=== PATIENT | female | born 1945 | race Caucasian/White ===

== ENCOUNTER → 2016-10-20 | Outpatient (CLI) | payer BC ==
[~2016-10-20] MED LIST: ATOR-22 PO; BUTA1CAP; CALC1TAB9; CLB/200 PO; DICL1GEL28; FLUO0.01; INDA1TAB3 PO; MIRA1TAB3; NITR1CAP33 PO; POTA1TAB; PRLSR20 PO; RAMI10CA PO; [UNRECOGNIZED DRUG - CODE]
[2016-10-20 12:24] LABS: BASO % 0.2 %; BASO ABS # 0.01 K/uL (0-0.2); COMPLETE YES; EOS % 1.2 %; HEMATOCRIT 38.1 % (37-47); IG% 0.2 %; MEAN CELL VOLUME 83.2 fL (80-100); MEAN CORPUSCULAR HEMOGLOBIN 27.7 pg (25-34); MEAN CORPUSCULAR HGB CONC 33.3 g/dl (32-36); MEAN PLATELET VOLUME 9.6 fL (7.4-10.4); MONO % 11.8 %; NEUT % 60.6 %; PLATELET COUNT 237 K/uL (130-400); RED BLOOD COUNT 4.58 M/uL (4.2-5.4); WHITE BLOOD COUNT 5.78 K/uL (4.8-10.8)
[2016-10-20 12:34] LABS: ALT/SGPT 22 U/L (12-78); AST/SGOT 14 U/L (15-37); BLOOD UREA NITROGEN 14 mg/dl (7-18); BUN/CREATININE RATIO 23.6 (10-20); CARBON DIOXIDE 30 mmol/L (21-32); CHLORIDE 102 mmol/L (98-107); CHOLESTEROL 211 mg/dl (0-200); CREATININE 0.59 mg/dl (0.60-1.20); GLUCOSE 88 mg/dl (70-99); POTASSIUM 3.2 mmol/L (3.5-5.1); SODIUM 141 mmol/L (136-145); TRIGLYCERIDES 192 mg/dl (0-150); VERY LOW DENSITY LIPOPROT CALC 38 mg/dl
[2016-10-20 12:44] LABS: HDL CHOLESTEROL 53 mg/dl; LDL CHOLESTEROL CALCULATED 120 mg/dl
[2016-10-20 12:56] LABS: ESTIMATED AVERAGE GLUCOSE 111 mg/dl; HA1C FLAG Normal (Normal)
== END | disposition home or self-care (01) ==
LOC: C.LABBFT 08:57
PROVIDERS: ATTEND Internal Medicine
DX: I10 Essential (primary) hypertension (principal); E78.00 Pure hypercholesterolemia, unspecified; R73.9 Hyperglycemia, unspecified; Z11.59 Encounter for screening for other viral diseases

== ENCOUNTER → 2017-01-09 | Outpatient (CLI) | payer BC | END | disposition home or self-care (01) | LOC: C.LAB 16:47 | PROVIDERS: ATTEND Nurse Practitioner Family | DX: N39.0 Urinary tract infection, site not specified (principal); N39.46 Mixed incontinence ==

== ENCOUNTER → 2017-01-24 | Outpatient (CLI) | payer BC | END | disposition home or self-care (01) | LOC: C.LABSPEC 17:01 | PROVIDERS: ATTEND Urology | DX: N39.46 Mixed incontinence (principal); N39.0 Urinary tract infection, site not specified ==

== ENCOUNTER → 2017-04-18 | Outpatient (CLI) | payer BC ==
[2017-04-18 12:18] LABS: BASO % 0.2 %; BASO ABS # 0.01 K/uL (0-0.2); COMPLETE YES; EOS % 0.9 %; HEMATOCRIT 38.7 % (37-47); LYMPH % 36.6 %; LYMPH ABS # 1.72 K/uL (1.2-3.4); MEAN CELL VOLUME 85.4 fL (80-100); MEAN CORPUSCULAR HEMOGLOBIN 28.3 pg (25-34); MEAN CORPUSCULAR HGB CONC 33.1 g/dl (32-36); MEAN PLATELET VOLUME 9.9 fL (7.4-10.4); MONO % 8.7 %; NEUT % 53.6 %; PLATELET COUNT 220 K/uL (130-400); RED BLOOD COUNT 4.53 M/uL (4.2-5.4)
[2017-04-18 12:35] LABS: ESTIMATED AVERAGE GLUCOSE 111 mg/dl; HA1C FLAG Normal (Normal)
[2017-04-18 12:36] LABS: ALT/SGPT 24 U/L (12-78); AST/SGOT 14 U/L (15-37); BLOOD UREA NITROGEN 18 mg/dl (7-18); BUN/CREATININE RATIO 26.5 (10-20); CALCIUM 9.2 mg/dl (8.5-10.1); CARBON DIOXIDE 32 mmol/L (21-32); CHLORIDE 103 mmol/L (98-107); CHOLESTEROL 161 mg/dl (0-200); CREATININE 0.66 mg/dl (0.60-1.20); GLUCOSE 97 mg/dl (70-99); POTASSIUM 3.3 mmol/L (3.5-5.1); SODIUM 140 mmol/L (136-145)
[2017-04-18 12:46] LABS: CHOLESTEROL/HDL RATIO 2.9; HDL CHOLESTEROL 55 mg/dl; LDL CHOLESTEROL CALCULATED 81 mg/dl; TRIGLYCERIDES 123 mg/dl (0-150); VERY LOW DENSITY LIPOPROT CALC 25 mg/dl
--- NOTE | 2017-04-24 11:38 | CODING QUERY MEDICAL NECESSITY ---
SUPPORTING DIAGNOSIS NEEDED Dr. Monet, A supporting diagnosis is required for the test/procedure performed on this patient in order for us to be reimbursed by the patient's insurance. Please provide a supporting diagnosis for the following test/procedure listed below next to the test name along with your signature. *If there is no additional diagnosis for this patient that would support the following test/procedure please document that below next to the test/procedure. Test(s)/Procedure(s) that require a supporting diagnosis: * [id number] GLYCATED HEMOGLOBIN DIAGNOSIS: DATE OF SERVICE: 04/18/17 Provider Signature: Date: Thank you Farooq Tuckre [facility] Information Management Once completed, please kindly fax back to [phone] For questions please call [phone]
== END | disposition home or self-care (01) ==
LOC: C.LABBFT 08:51
PROVIDERS: ATTEND Internal Medicine
DX: E78.00 Pure hypercholesterolemia, unspecified (principal); R73.9 Hyperglycemia, unspecified

== ENCOUNTER → 2017-06-01 | Outpatient (CLI) | payer BC | END | disposition home or self-care (01) | LOC: C.MAMM 10:34 | PROVIDERS: ATTEND Internal Medicine | DX: M81.0 Age-related osteoporosis without current pathological fracture (principal); M85.852 Other specified disorders of bone density and structure, left thigh ==

== ENCOUNTER → 2017-06-20 | Outpatient (CLI) | payer BC ==
--- NOTE | 2017-06-20 15:21 | MAMMOGRAPHY REPORT ---
BILATERAL DIGITAL SCREENING MAMMOGRAM WITH CAD: 06/20/2017 CLINICAL HISTORY: Routine screening. Patient has no complaints. TECHNIQUE: Bilateral CC and MLO views were obtained. Current study was also evaluated with a Compute r Aided Detection (CAD) system. COMPARISON: Comparison is made to exams dated: 06/16/2016 mammogram, 05/25/2015 mammogram, 05/14/2014 mammogram, 05/09/2012 mammogram, 04/19/2010 mammogram, and 04/20/2011 mammogram - [facility] enter. BREAST COMPOSITION: There are scattered areas of fibroglandular density in both breasts. FINDINGS: There is a stable intramammary lymph node in the upper outer posterior left breast. No sonido picious mass, architectural distortion or cluster of microcalcifications is seen. IMPRESSION: ACR BI-RADS CATEGORY 1: NEGATIVE There is no mammographic evidence of malignancy. A 1 year screening mammogram is recommended. The pa tient will receive written notification of the results. Approximately 10% of breast cancers are not detected with mammography. A negative mammographic report should not delay biopsy if a clinically suggestive mass is present. Keesha Avendaño M.D. ay/:06/20/2017 12:06:03 Manager Of Network: Glenna SMITH(Marquez)(Jacquie), [facility] letter sent: Normal 1/2 BI-RADS Code: ACR BI-RADS Category 1: Negative
== END | disposition home or self-care (01) ==
LOC: C.MAMM 10:27
PROVIDERS: ATTEND Obstetrics & Gynecology
DX: Z12.31 Encounter for screening mammogram for malignant neoplasm of breast (principal)

== ENCOUNTER → 2017-12-12 | Outpatient (CLI) | payer BC ==
[2017-12-12 12:34] LABS: BASO % 0.4 %; BASO ABS # 0.02 K/uL (0-0.2); EOS % 1.8 %; HEMATOCRIT 39.4 % (37-47); IG# 0.01 K/uL (0.00-0.02); LYMPH % 24.7 %; LYMPH ABS # 1.35 K/uL (1.2-3.4); MEAN CELL VOLUME 84.5 fL (80-100); MEAN CORPUSCULAR HEMOGLOBIN 27.9 pg (25-34); MEAN PLATELET VOLUME 9.7 fL (7.4-10.4); MONO % 10.1 %; MONO ABS # 0.55 K/uL (0.11-0.59); NEUT % 62.8 %; NEUT ABS # 3.43 K/uL (1.4-6.5); PLATELET COUNT 243 K/uL (130-400); RED CELL DISTRIBUTION WIDTH CV 14.2 % (11.5-14.5); WHITE BLOOD COUNT 5.46 K/uL (4.8-10.8)
[2017-12-12 12:53] LABS: HEMOGLOBIN A1C 5.7 % (4.5-5.6)
[2017-12-12 13:03] LABS: ALT/SGPT 35 U/L (12-78); AST/SGOT 21 U/L (15-37); BLOOD UREA NITROGEN 15 mg/dl (7-18); CALCIUM 9.4 mg/dl (8.5-10.1); CARBON DIOXIDE 28 mmol/L (21-32); CREATININE 0.59 mg/dl (0.60-1.20); GLUCOSE 105 mg/dl (70-99); POTASSIUM 3.2 mmol/L (3.5-5.1); SODIUM 139 mmol/L (136-145)
[2017-12-12 13:14] LABS: CHOLESTEROL 162 mg/dl (0-200); LDL CHOLESTEROL CALCULATED 75 mg/dl
== END | disposition home or self-care (01) ==
LOC: C.LABBFT 07:53
PROVIDERS: ATTEND Internal Medicine
DX: E78.00 Pure hypercholesterolemia, unspecified (principal)

== ENCOUNTER 2019-03-09 16:50 | Observation (INO) ==
--- OUTSIDE RECORDS SUMMARY | 2019-03-09 16:55 | External Medical Summary | Continuity of Care Document ---
:1945 Author Name Geovanni Enriquez, Provider Address Unavailable Unavailable , Care Team Providers Name Role Phone Mejia Desir PA-C Unavailable [email or web address] Shen Enriquez I. Unavailable [email or web address] Tierney Enriquez Unavailable [email or web address] TIERNEY Unavailable Unavailable Unavailable Unavailable Unavailable Problems Vertigo (780.4) (R42) Chronic constipation (564.00) (K59.09) Urge and stress incontinence (788.33) (N39.46) UTI (urinary tract infection) (599.0) (N39.0) Recurrent urinary tract infection (599.0) (N39.0) Recurrent UTI (urinary tract infection) (599.0) (N39.0) Gastroesophageal reflux disease (530.81) (K21.9) Overweight (278.02) (E66.3) Osteoporosis (733.00) (M81.0) Itchy skin (698.9) (L29.9) Low back pain (724.2) (M54.5) Rib pain on left side (786.50) (R07.81) Encounter for wellness examination (V70.0) (Z00.00) Trochanteric bursitis (726.5) (M70.60) Sciatica (724.3) (M54.30) Arthritis (716.90) (M19.90) Adverse effects of medication (E947.9) (T50.905A) Joint pain, knee (719.46) (M25.569) Nevus of face (216.3) (D22.30) Forgetfulness (780.99) (R68.89) Dysuria (788.1) (R30.0) Hyperglycemia (790.29) (R73.9) Hypercholesterolemia (272.0) (E78.00) Hypertension (401.9) (I10) Allergies and Adverse Reactions Neosporin OINT (Allergy) Voltaren TBEC (Allergy) Nickel (Allergy) Medications Atorvastatin Calcium 20 MG Oral Tablet; TAKE 1 TABLET BY MOUTH EVERY DAY AT BEDTIME MAAME Desir Start: 04-Feb-2013 Quantity: 90 Refills: 3 Celecoxib 200 MG Oral Capsule; TAKE 1 CAPSULE Daily Zoe Monet Start: 13-Jul-2012 Quantity: 90 Refills: 3 Ramipril 10 MG Oral Capsule; TAKE 1 CAPSULE DAILY. Jacquie Monet Start: 01-Feb-2012 Quantity: 90 Refills: 3 Elidel 1 % External Cream; APPLY THIN FILM TO AFFECTED AREA(S) ONCE DAILY. Zoe Monet Start: 15-May-2018 Quantity: 1 30 GM Tube Refills: 3 Fluocinonide 0.05 % External Cream; APPL Y SPARINGLY TO AFFECTED AREA(S) TWICE DAILY Zoe Monet 30 GM Tube Quantity: 1 Refills: 3 flavoxATE HCl - 100 MG Oral Tablet; TAKE 1 TABLET 3 ti mes daily Zoe Monet Start: 27-Jan-2017 Quantity: 270 Refills: 3 Nitrofurantoin Macrocrystal 50 MG Oral Capsule; TAKE 1 CAPSULE AT BEDTIME. Zoe Monet Quantity: 90 Refills: 3 Omeprazole 20 MG Oral Capsule Delayed Release; TAKE 1 CAPSULE BY MOUTH DAILY. Zoe Monet Quantity: 90 Refills: 3 Indapamide 1.25 MG Oral Tablet; TAKE 1 TABLET ONCE DAILY. Zoe Curtis Quantity: 90 Refills: 3 Myrbetriq 50 MG Oral Tablet Extended Release 24 Hour; Take 1 tablet daily Zoe Monet Start: 08-Jul-2014 Quantity: 90 Refills: 3 Procedures History of Tonsillectomy Status: Complet ed History of Diagnostic Esophagogastroduodenoscopy Status: Completed History of Total Abdominal Hysterectomy With Removal Of Both Status: Completed Ovaries Immunizations Influenza On: 13-Jul-2012 14:44 Lot #: [id number], [employer]UR Influenza On: 13-Jun-2013 15:44 Lot #: [id number], [employer] PA[employer]UR Influenza On: 16-Jul-2015 11:10 Lot #: [id number], SANOFI PASTEUR Fluzone High-Dose Intramuscular Suspension On: 08-Jul-2016 Fluzone High-Dose Intramuscular Suspension On: 22-Jun-2017 1 4:12 Lot #: [id number], SANOFI PASTEUR Fluzone High-Dose Intramuscular Suspension On: 26-Jun-2018 1 6:15 Lot #: [id number], SANOFI PASTEUR Family History Mother Family history of Hypertension (V17.49) Status: Active Family history of Heart Disease (V17.49) Status: Active Father Family history of Alzheimer Disease Status: Active Brother Family history of Diabetes Mellitus (V18.0) Status: Active Grandfather Family history of Diabetes Mellitus (V18.0) Status: Active Unknown Family Member Family history of Diabetes Mellitus (V18.0) Status: Active Comments: Family History Social History - Smoking Status Never smoker Plan of Treatment Planned Encounters Appointment; Jose Gotti M.D. Start: 19-Feb-2020 10:00 R equest Planned Observations Planned Goals not documented [facility] ([facility]ending) Laboratory: [place] 20-Feb-2019 10:38 VOID, CC, CATH CC Turbid, Clear, Hazy Clear Gluc 0 Prot 0 Nitrate 0 Leuk ++ Blood + pH 7.0 MICROSCOPIC bacteria large wbc7-10 rbc2- 4 PVR (Urology) (Pending) Laboratory: [place] 20-Feb-2019 10:42 PVR 135 ml Encounters Appointment; Jose Gotti M.D. 20-Feb-2019 10:15 Encounter Diagnosis: Problem not documented Appointment; Edil Monet M.D. 08-Nov-2018 14:30 Encounter Diagnosis: Problem not documented Appointment; Jose Gotti M.D. 29-Aug-2018 13:20 Encounter Diagnosis: Problem not documented Appointment; Urology, Room 7 29-Aug-2018 13:05 Encounter Diagnosis: Problem not documented Appointment; Edil Monet M.D. 17-Aug-2018 11:30 Encounter Diagnosis: Problem not documented Appointment; Jose Gotti M.D. 11-Jul-2018 10:15 Encounter Diagnosis: Problem not documented Appointment; Edil Monet M.D. 26-Jun-2018 15:30 Encounter Diagnosis: Problem not documented Appointment; Edil Monet M.D. 15-May-2018 14:30 Encounter Diagnosis: Problem not documented Appointment; Edil Monet M.D. 23-Mar-2018 15:15 Encounter Diagnosis: Problem not documented Appointment; Edil Monet M.D. 18-Dec-2017 15:15 Encounter Diagnosis: Problem not documented Appointment; Jose Gotti M.D. 07-Dec-2017 10:50 Encounter Diagnosis: Problem not documented Appointment; Edil Monet M.D. 14-Sep-2017 13:45 Encounter Diagnosis: Problem not documented Appointment; [place] [id number] 22-Jun-2017 14:05 Encounter Diagnosis: Problem not documented Appointment; Edil Monet M.D. 09-May-2017 11:45 Encounter Diagnosis: Problem not documented Appointment; Jose Gotti M.D. 19-Feb-2020 10:00 Encounter Diagnosis: Problem not documented
[2019-03-09 17:56] LABS: Basophils # (auto) 0.01 K/uL (0-0.2); Basophils % (auto) 0.1 %; Eosinophils # (auto) 0.01 K/uL (0-0.5); Eosinophils % (auto) 0.1 %; Hematocrit (blood only) 41.9 % (37-47); Hemoglobin 14.3 g/dL (12.0-16.0); Immature Granulocytes # (auto) 0.03 K/uL (0.00-0.02); Immature Granulocytes % (auto) 0.2 %; Lymphocytes # (auto) 0.63 K/uL (1.2-3.4); Mean Corpuscular Hgb Conc 34.1 g/dL (32-36); Mean Platelet Volume 9.6 fL (7.4-10.4); Monocytes # (auto) 0.23 K/uL (0.11-0.59); Monocytes % (auto) 1.8 %; Neutrophils # (auto) 11.73 K/uL (1.4-6.5); Neutrophils % (auto) 92.8 %; Platelet Count 216 K/uL (130-400); RDW Coefficient of Variation 13.3 % (11.5-14.5); RDW Standard Deviation 39.8 fL (36.4-46.3); Red Blood Count 5.05 M/uL (4.2-5.4); White Blood Count 12.64 K/uL (4.8-10.8)
[2019-03-09 18:22] LABS: Alanine Aminotransferase 32 U/L (12-78); Albumin Level 3.7 gm/dl (3.4-5.0); Aspartate Aminotransferase 23 U/L (15-37); BUN Creatinine Ratio 14.3 (10-20); Blood Urea Nitrogen 12 mg/dl (7-18); Calcium 9.6 mg/dl (8.5-10.1); Carbon Dioxide 28 mmol/L (21-32); Chloride 102 mmol/L (98-107); Est GFR (African American) 77.7; Glucose 162 mg/dl (70-99); Potassium 2.6 mmol/L (3.5-5.1); Sodium 141 mmol/L (136-145)
[2019-03-09 18:31] LABS: Alkaline Phosphatase 130 U/L (45-117); Bilirubin,Total 0.7 mg/dl (0.2-1); Globulin 3.8 gm/dl (2.5-4.0); Total Protein 7.5 gm/dl (6.4-8.2)
--- NOTE | 2019-03-09 18:50 | XRay Report ---
XR abdomen 2V w PA chest HISTORY: 73 years-old Female pain/vo,mitting eval for obstruction acute generalized abdominal pain w ith vomiting COMPARISON: Chest and rib radiographs 07/05/2017 TECHNIQUE: PA view of the chest with left lateral decubitus and supine views of the abdomen FINDINGS: Cardiomediastinal and hilar silhouettes are within normal limits. No pneumothorax, pleural effusion, focal airspace consolidation or overt pulmonary edema. General changes of the shoulders and spine. No pneumatosis or pneumoperitoneum identified. No urolith. Bowel gas pattern is nonobstructive. Gas-f illed mildly prominent loop of bowel noted within the abdominal right upper quadrant. 4 mm calculus o f the inferior pole right kidney. Indeterminate 4 mm right pelvic basin calcifications. Degenerative changes of the spine and hips. IMPRESSION: 1. No acute processes of the chest. 2. Nonobstructive bowel gas pattern without pneumoperitoneum. 3. Right nephrolithiasis. Indeterminate 4 mm right pelvic basin calcification suggestive of a uretera l calculus versus phlebolith. Correlate with urinalysis. The above report was generated using voice recognition software. It may contain grammatical, syntax o r spelling errors. Electronically signed by: Margarito Golden M.D. 03/09/2019 6:49 PM
[2019-03-09] MEDS ORDERED: POTASSIUM CHLORIDE 10 MEQ TABCR PO STA (19:06)
[2019-03-09] MEDS ORDERED: POTASSIUM CHLORIDE / WTR 10 MEQ/100 ML PLCT IV ONE (19:06)
[2019-03-09] MEDS ORDERED: IOVERSOL 100ml IV PRN (20:00)
--- NOTE | 2019-03-09 20:36 | CT Scan Report ---
ABDOMEN AND PELVIS CT WITH IV CONTRAST CT DOSE: 760.11 mGy.cm HISTORY: Acute lower abdominal pain with clinical concern for colonic diverticulitis. lower abd pain eval for divertic TECHNIQUE: Multiaxial CT images of the abdomen and pelvis were performed following the use of intrave nous contrast. A dose lowering technique was utilized adhering to the principles of ALARA. COMPARISON STUDY: Acute abdominal series radiographs of same day, lumbar spine MRI 10/22/2015 FINDINGS: Mild subsegmental dependent bibasilar atelectasis. There is no pneumatosis or pneumoperitoneum identi fied. Imaged inferior cardiac chambers are unremarkable. There are multiple circumscribed hypodense lesions about the liver suggestive of probable cysts measu ring up to 2.6 cm. Mild lobulation about the inferior right hepatic lobe. No intrahepatic biliary aryan cheryl dilation. The common bile duct is mildly dilated measuring up to 9 mm transversely. Additionally, there is mild distention of the gallbladder. No gallbladder wall thickening, cholelithiasis or og docholithiasis identified. The spleen, pancreas and and adrenal glands appear unremarkable. There is a mixed cystic and solid lesion with enhancing mural nodularity about the anterior interpolar left ki dney, 1.4 x 2.0 x 1.9 cm. Left renal vein appears normal. 4.3 cm cyst of the superior pole right kidn ey. 4 mm nonobstructing calculus of the inferior pole right kidney. Urinary bladder is unremarkable. Hysterectomy. No adnexal mass lesions. Moderate calcified plaque of the abdominal aorta without aneur ysm. No adenopathy. Distended fluid-filled distal esophagus with small hiatal hernia. Multiple fluid-filled loops of larg e bowel are also noted. Circumferential wall thickening with mucosal hyperemia of the rectum with add itional areas of wall thickening noted throughout the transverse, descending and sigmoid colon. Colon ic diverticulosis without acute diverticulitis. No CT evidence of acute appendicitis. Small fat fille d periumbilical hernia. Soft tissues are within normal limits. Atrophic changes about the left glutea l musculature. Degenerative changes of the spine, pelvis and hips. IMPRESSION: 1. Mixed cystic and solid lesion with enhancing mural nodularity about the interpolar left kidney pedro pablo suring up to 2.0 cm is suggestive of renal cell carcinoma. 2. No adenopathy or evidence of metastatic disease. 3. Findings compatible with a nonspecific proctocolitis with associated diarrheal illness. 4. No bowel obstruction, pneumatosis or pneumoperitoneum. 5. Small hiatal hernia. 6. Additional findings as above. Electronically signed by: Margarito Golden M.D. 03/09/2019 8:34 PM
--- NOTE | 2019-03-09 22:09 | History & Physical Report ---
Date of Service March 09, 2019 Assessment & Plan (1) Abdominal pain: 73-year-old female was admitted on 09 March 2019 for abdominal pain, proctocolitis, and hypokalemia. Abdominal pain, constipation, proctocolitis: Apparent long history of constipation including no bowel movement for > 1 week. Acute emesis earlier today as well. - In ED, afebrile, not tachycardic, moderately hypertensive, with normal room SpO2. WBC 12. X-ray of the chest noted no acute process. CT a/p with IV contrast noted nonspecific proctocolitis with associated diarrheal illness (with other findings as noted below). - Patient symptoms greatly improved/resolved after a bowel movement in the ED. Still some concern for developing infectious colitis. Monitor overnight for fever and/or tachycardia. Tylenol and Zofran as needed. Add Colace. Hypokalemia: Admit K 2.6. Only comparison is August 2018 which was K 2.7. Unknown source. - In ED was treated with 40 mEq p.o. and started on potassium riders. - Will continue p.o. potassium replacement. Recheck labs in a.m. Renal mass: CT a/p with IV contrast noted a mixed cystic and solid lesion of the left kidney measuring up to 2 cm suggestive of renal cell carcinoma. No adenopathy or evidence of metastatic disease. UA is pending. Admit Cr 0.86. Sounds like new news. - Discussed the same with family. Will need close outpatient follow-up for work-up. Incidental CT a/p findings: - Small hiatal hernia. - Colonic diverticulosis. - Small periumbilical hernia. - Probable liver cysts upwards of 2.6 cm. Elevated alkaline phosphatase: Admit AP 130. Remaining LFTs normal. Non-tender abdomen on H&P. - Can be evaluated as outpatient. Likely dementia: Family notes memory issues for the past year. Some difficulty here with basic questions. Ongoing medical issues (all per familys account): - Hypertension, hyperlipidemia: On home indapamide, ramipril, and atorvastatin. - Urinary incontinence, chronic UTI: On home Myrbetriq and chronic nitrofurantoin. - GERD, history of esophageal dilation: On home omeprazole. - Possible back pain: On home Celebrex. - Possible atopic dermatitis: On home Elidel. Code status: Full code. Diet: Full liquid diet. DVT prophy: Lovenox. PT/OT: Deferred. Disbo: Admit for observation to [facility] with telemetry. (2) Constipation: (3) Proctocolitis: (4) Hypokalemia: (5) Renal mass, left: (6) Hiatal hernia: (7) Diverticulosis: (8) Periumbilical hernia: (9) Liver cyst: (10) Elevated alkaline phosphatase level: (11) Dementia: (12) Hypertension: (13) Hyperlipidemia: (14) Urinary incontinence: (15) Chronic UTI (urinary tract infection): (16) GERD (gastroesophageal reflux disease): History of Present Illness Primary Care Provider: Kwame Monet MD 73-year-old female presented to the emergency department complaining of acute nausea and vomiting as well as chronic abdominal pain for years. The patient knows her name, date of , that she is at [facility] but not the city or the date. For most of the H&P, she was fixated on some discomfort at her right arm IV site where her potassium rider was being given. The below history is based on the account of her and [id number] at bedside. Patient lives with her . There is been some level of abdominal discomfort and constipation for perhaps a year now. She sees Dr. Monet (nephrology) as her PCP but they state it is "not as often as it should be". Earlier today she had perhaps over 5 episodes of non-bloody emesis. Apparently this made her quite weak and she had to crawl out of the bathroom to her for help. She also had increased abdominal pain, crampy in nature, with last bowel movement over a week ago. No known fevers or recent illnesses. Her says that she does not complain much at home. At the time of this H&P, the patient had already had a large bowel movement in the ED. When asked by her , patient said that her abdominal pain is now "okay" and possibly is resolved. Otherwise the patient and family did not have any immediate concerns. All per family: - Past medical history includes hypertension, hyperlipidemia, urinary incontinence, chronic UTIs, GERD, esophageal issues, back pain, ongoing evaluation for dementia. - Past surgical history includes hysterectomy. -Social history includes denying tobacco and alcohol use. Lives at home with . Allergies Allergy/AdvReac Type Severity Reaction Status Date / Time dexamethasone Allergy Unknown hives Unverified 03/09/19 17:23 methylprednisolone Allergy Unknown hives Unverified 03/09/19 17:23 triamcinolone Allergy Unknown hives Unverified 03/09/19 17:23 Home Medications Home Medications Medication Instructions Recorded Confirmed Type atorvastatin 20 mg PO HS 03/09/19 03/09/19 History celecoxib 200 mg PO DAILY 03/09/19 03/09/19 History indapamide 1.25 mg PO DAILY 03/09/19 03/09/19 History mirabegron [Myrbetriq] 50 mg PO DAILY 03/09/19 03/09/19 History nitrofurantoin macrocrystal 50 mg PO HS 03/09/19 03/09/19 History omeprazole 20 mg PO DAILY 03/09/19 03/09/19 History pimecrolimus [Elidel] 1 applic TOPICAL DAILY 03/09/19 03/09/19 History ramipril 10 mg PO DAILY 03/09/19 03/09/19 History Past Med/Surg History Medical History Constipation Social History Feels Safe at Home: Yes Smoking Status: Never smoker Review of Systems Review of Systems: Unable to obtain ROS due to baseline confusion. Physical Exam Physical Exam: GENERAL: Awake, alert, well-appearing, in no acute distress. Oriented to person, roughly to place, but not to date. HENT: Normocephalic, atraumatic. Oropharynx unremarkable. EYES: Normal conjunctiva. Sclera non-icteric. NECK: Inspection normal. Supple and full ROM. CARDIAC: +S1S2 RRR, no murmurs. Some thoracic kyphosis. RESPIRATORY: Clear to auscultation. No wheezes or rales. Normal respiratory effort. GI: +BS, soft, non-distended. No tenderness to palpation. No rebound or guarding. EXTREMITIES: No pedal edema or calf tenderness. Moving all extremities naturally and easily. NEURO: No gross neuro deficits. Results & Data Vital Signs (Past 12 Hours) Vital Signs Temp Pulse Pulse Resp BP BP Pulse Ox 07/06/19 20:58 90 20 133/70 95 03/09/19 20:00 86 18 163/88 H 98 03/09/19 18:00 83 18 159/88 H 94 03/09/19 16:41 36.7 C 94 H 20 162/90 H 98 Laboratory Results 03/09/19 03/09/19 Range/Units 17:45 17:45 WBC 12.64 H (4.8-10.8) K/uL RBC 5.05 (4.2-5.4) M/uL Hgb 14.3 (12.0-16.0) g/dL Hct 41.9 (37-47) % MCV 83.0 (80-100) fL MCH 28.3 (25-34) pg MCHC 34.1 (32-36) g/dL RDW Std Deviation 39.8 (36.4-46.3) fL RDW Coeff of Thomas 13.3 (11.5-14.5) % Plt Count 216 (130-400) K/uL MPV 9.6 (7.4-10.4) fL Immature Gran % (Auto) 0.2 % Neut % (Auto) 92.8 % Lymph % (Auto) 5.0 % [place] % (Auto) 1.8 % Eos % (Auto) 0.1 % Baso % (Auto) 0.1 % Immature Gran # (Auto) 0.03 H (0.00-0.02) K/uL Neut # (Auto) 11.73 H (1.4-6.5) K/uL Lymph # (Auto) 0.63 L (1.2-3.4) K/uL [place] # (Auto) 0.23 (0.11-0.59) K/uL Eos # (Auto) 0.01 (0-0.5) K/uL Baso # (Auto) 0.01 (0-0.2) K/uL Sodium 141 (136-145) mmol/L Potassium 2.6 L (3.5-5.1) mmol/L Chloride 102 (98-107) mmol/L Carbon Dioxide 28 (21-32) mmol/L Anion Gap 11.0 (3-11) BUN 12 (7-18) mg/dl Creatinine 0.86 (0.6-1.2) mg/dl Est Cr Clr Drug Dosing Not Reportable Est GFR ( Amer) 77.7 Est GFR (Non-Af Amer) 67.0 BUN/Creatinine Ratio 14.3 (10-20) Glucose 162 H (70-99) mg/dl Calcium 9.6 (8.5-10.1) mg/dl Total Bilirubin 0.7 (0.2-1) mg/dl AST 23 (15-37) U/L ALT 32 (12-78) U/L Alkaline Phosphatase 130 H (45-117) U/L Total Protein 7.5 (6.4-8.2) gm/dl Albumin 3.7 (3.4-5.0) gm/dl Globulin 3.8 (2.5-4.0) gm/dl Albumin/Globulin Ratio 1.0 (0.9-2) Lipase 286 (73-393) U/L Medications Administered Ioversol (Optiray 320 100ml) 93 ml IV ONCE PRN PRN Reason: Interaction Checking Stop: 03/13/19 19:59 Last Admin: 03/09/19 20:01 Dose: 93 ml Documented by: [id number] Discontinued Medications Potassium Chloride (K Leroy / Wtr) 10 meq in 100 mls @ 100 mls/hr IV ONE ONE Stop: 03/09/19 20:05 Last Infusion: 03/09/19 20:58 Dose: 0 mls/hr Documented by: [id number] Admin: 03/09/19 19:40 Dose: 100 mls/hr Documented by: [id number] Potassium Chloride (Klor-Con M10) 40 meq PO NOW STA Stop: 03/09/19 19:07 Last Admin: 03/09/19 19:40 Dose: 40 meq Documented by: [id number] Code Status & VTE Plan Code Status Full code VTE Prophylaxis Plan VTE Prophylaxis will be ordered: Yes Supervising Physician Co-Signing Physician Notes Patient seen and examined, chart reviewed, case discussed with Dr. Nunes and I agree with his assessment and plan as documented above. Briefly, patient is a 73yo C female with chronic constipation presenting with abdominal, vomiting x 10 episodes and weakness. Found to have collitis on CT, hypokalemia with K of 2.6 On exam she is afebrile, hemodynamically stable, non-toxic in appearance HEENT - NC/AT, PERRL, MMM, neck supple Heart - +S1/S2, regular, no m/r/g Lungs - CTA Abd - +BS diminished throughout, soft, diffusely tender with no rebound/guarding or peritoneal signs, no masses/organomegaly/ascites Ext - Warm, well perfused, palpable pulses Labs and images reviewed. K=2.6, WBC=12.64 Assessment/Plan: -Observation to medical floor with telemetry -K repletion -Tylenol and Zofran, bowel regimen -Additional imaging and followup of renal mass per PCP -Dementia workup per PCP -Remainder of plan as above PG Care Time/CCT Total # of Minutes Spent Total Time Spent with Patient: Total time spent is greater than 50% in coordination of care (as documented) at patient's floor/unit and/or counseling patient: Resident Activity Tracking Resident Involvement: Resident Care Provided Care Provided: Adult Hospital Medicine
--- NOTE | 2019-03-09 22:18 | Emergency Department Note ---
Entered by Nkechi Ha acting as a scribe for History of Present Illness General Chief complaint: Abdominal Pain Source: patient Mode of arrival: EMS Limitations: no limitations History of Present Illness Onset (ago): hour(s) 2 Location: abdomen Radiation: non-radiation Pain Consistency: + constant Current Pain Intensity: 10 Quality: + other ("cramping") Relieved By: + none Exacerbated By: + none Associated symptoms: + nausea/vomiting and + other (-urinary symptoms); no fever/chills Treatments prior to arrival: none The patient is a 73 year old female who presents to the ED with complaints of persistent abdominal pain for "a very long time". She states a few hours prior to arrival, the pain worsened so she called EMS. She was brought to the ED via BLS from home. She rates her discomfort as a 10/10 in severity and describes it as feeling "crampy" in nature. She cannot remember her last normal bowel mov ement and admits to longstanding issues with constipation. She also vomited prior to arrival. She denies any recent fevers or urinary symptoms. Home Medications Home Medications Medication Instructions Recorded Confirmed Type atorvastatin 20 mg PO HS 03/09/19 03/09/19 History celecoxib 200 mg PO DAILY 03/09/19 03/09/19 History indapamide 1.25 mg PO DAILY 03/09/19 03/09/19 History mirabegron [Myrbetriq] 50 mg PO DAILY 03/09/19 03/09/19 History nitrofurantoin macrocrystal 50 mg PO HS 03/09/19 03/09/19 History omeprazole 20 mg PO DAILY 03/09/19 03/09/19 History pimecrolimus [Elidel] 1 applic TOPICAL DAILY 03/09/19 03/09/19 History ramipril 10 mg PO DAILY 03/09/19 03/09/19 History Allergies Allergy/AdvReac Type Severity Reaction Status Date / Time dexamethasone Allergy Unknown hives Unverified 03/09/19 17:23 methylprednisolone Allergy Unknown hives Unverified 03/09/19 17:23 triamcinolone Allergy Unknown hives Unverified 03/09/19 17:23 Past Med/Surg History Medical History Constipation Social History Feels Safe at Home: Yes Smoking Status: Never smoker Review of Systems See HPI for pertinent positives & negatives. and A total of 10 systems reviewed and were otherwise negative Physical Exam Vital Signs Vital Signs - 24 hr 03/09/19 16:41 03/09/19 18:00 03/09/19 20:00 Temperature 36.7 C Temperature Source Oral Sepsis Recent Fever Within 48 Hours No Sepsis New/Unexplained Change in Mental Status No Sepsis Action Taken by Nursing No Action Required Pulse Rate 94 H Pulse Rate [Right Finger] 83 86 Pulse Strength Normal Respiratory Rate 20 18 18 Respiratory Effort / Characteristics Non-Labored Spontaneous Non-Labored Spontaneous Non-Labored Spontaneous Respiratory Depth Normal Normal Normal Respiratory Pattern Regular Regular Regular Blood Pressure 162/90 H Blood Pressure [Left Arm] 159/88 H 163/88 H Blood Pressure Mean 114 Blood Pressure Mean [Left Arm] 111 113 Blood Pressure Position Lying Blood Pressure Position [Left Arm] Lying Sitting Pulse Oximetry 98 94 98 Oxygen Delivery Method Room Air Room Air Room Air 03/09/19 20:58 03/09/19 22:07 Temperature Temperature Source Sepsis Recent Fever Within 48 Hours Sepsis New/Unexplained Change in Mental Status Sepsis Action Taken by Nursing Pulse Rate Pulse Rate [Right Finger] 90 83 Pulse Strength Respiratory Rate 20 20 Respiratory Effort / Characteristics Non-Labored Spontaneous Non-Labored Spontaneous Respiratory Depth Normal Normal Respiratory Pattern Regular Regular Blood Pressure Blood Pressure [Left Arm] 133/70 115/61 Blood Pressure Mean Blood Pressure Mean [Left Arm] 91 79 Blood Pressure Position Blood Pressure Position [Left Arm] Lying Lying Pulse Oximetry 95 96 Oxygen Delivery Method Room Air Room Air Constitutional: Vital signs reviewed. Eyes: Pupils are equal round reactive to light. Conjunctiva are noninjected. ENT: Pharynx is clear without erythema or exudate. Mucous membranes are moist. Neck supple without meningeal signs. Respiratory: Clear to auscultation bilaterally. Breath sounds are equal bilaterally. Cardiovascular: Regular rate and rhythm. No rubs or gallops. GI: Soft, nondistended. Some mild suprapubic tenderness, no guarding. Bowel sounds are present. Musculoskeletal: No peripheral edema. No lower extremity tenderness. Integumentary: No cyanosis. Neurological: The patient is awake and alert. No focal deficits. Psychiatric: Normal affect. Course 1701: The patient was evaluated in room A4B and a complete history and physical were performed. 1714: The patient had a hard bowel movement. 1899: I reevaluated the patient. She had 3 large bowel movements. She is still having pain. She states she does not know why her Potassium is low. She is agreeable to CT scan. 2044: I reevaluated the patient. She states she would rather go home but her family is concerned and would like her to stay. 2049: I discussed the patients case with Dr. Swenson, [facility]. The patient will be further evaluated. 2104: I reevaluated the patient. I discussed that Dr. Swenson will evaluate her and decide if she can go home, or if she should stay. Consultations Consultation #1: I discussed the patients case with Dr. Swenson [facility]. The patient will be further evaluated. Time: 20:50 Administered Medications Ioversol (Optiray 320 100ml) 93 ml IV ONCE PRN PRN Reason: Interaction Checking Stop: 03/13/19 19:59 Last Admin: 03/09/19 20:01 Dose: 93 ml Documented by: [id number] Discontinued Medications Potassium Chloride (K Leroy / Wtr) 10 meq in 100 mls @ 100 mls/hr IV ONE ONE Stop: 03/09/19 20:05 Last Infusion: 03/09/19 20:58 Dose: 0 mls/hr Documented by: [id number] Admin: 03/09/19 19:40 Dose: 100 mls/hr Documented by: [id number] Potassium Chloride (Klor-Con M10) 40 meq PO NOW STA Stop: 03/09/19 19:07 Last Admin: 03/09/19 19:40 Dose: 40 meq Documented by: [id number] Medical Decision Making Differential Diagnosis The differential diagnoses considered include constipation, fecal impaction, bowel obstruction, IBS and diverticulitis. Medical Records Attestation: I reviewed the patient's medical records. I did perform a limited focused review of portions of the patient's old chart on the electronic medical record. The patient has had no recent pertinent visits to this hospital. Home Medications Current Medication List: was personally reviewed by me Laboratory Data Attestation: I reviewed the patient's lab results. Result diagrams: 03/09/19 17:45 03/09/19 17:45 Lab Results 03/09/19 03/09/19 Range/Units 17:45 17:45 WBC 12.64 H (4.8-10.8) K/uL RBC 5.05 (4.2-5.4) M/uL Hgb 14.3 (12.0-16.0) g/dL Hct 41.9 (37-47) % MCV 83.0 (80-100) fL MCH 28.3 (25-34) pg MCHC 34.1 (32-36) g/dL RDW Std Deviation 39.8 (36.4-46.3) fL RDW Coeff of Thomas 13.3 (11.5-14.5) % Plt Count 216 (130-400) K/uL MPV 9.6 (7.4-10.4) fL Immature Gran % (Auto) 0.2 % Neut % (Auto) 92.8 % Lymph % (Auto) 5.0 % [place] % (Auto) 1.8 % Eos % (Auto) 0.1 % Baso % (Auto) 0.1 % Immature Gran # (Auto) 0.03 H (0.00-0.02) K/uL Neut # (Auto) 11.73 H (1.4-6.5) K/uL Lymph # (Auto) 0.63 L (1.2-3.4) K/uL [place] # (Auto) 0.23 (0.11-0.59) K/uL Eos # (Auto) 0.01 (0-0.5) K/uL Baso # (Auto) 0.01 (0-0.2) K/uL Sodium 141 (136-145) mmol/L Potassium 2.6 L (3.5-5.1) mmol/L Chloride 102 (98-107) mmol/L Carbon Dioxide 28 (21-32) mmol/L Anion Gap 11.0 (3-11) BUN 12 (7-18) mg/dl Creatinine 0.86 (0.6-1.2) mg/dl Est Cr Clr Drug Dosing Not Reportable Est GFR ( Amer) 77.7 Est GFR (Non-Af Amer) 67.0 BUN/Creatinine Ratio 14.3 (10-20) Glucose 162 H (70-99) mg/dl Calcium 9.6 (8.5-10.1) mg/dl Total Bilirubin 0.7 (0.2-1) mg/dl AST 23 (15-37) U/L ALT 32 (12-78) U/L Alkaline Phosphatase 130 H (45-117) U/L Total Protein 7.5 (6.4-8.2) gm/dl Albumin 3.7 (3.4-5.0) gm/dl Globulin 3.8 (2.5-4.0) gm/dl Albumin/Globulin Ratio 1.0 (0.9-2) Lipase 286 (73-393) U/L Imaging Data Radiologist's Impression: Radiology results as stated below per my review and the radiologist's interpretation: XR abdomen 2V w PA chest HISTORY: 73 years-old Female pain/vomitting eval for obstruction acute generalized abdominal pain with vomiting COMPARISON: Chest and rib radiographs 07/05/2017 TECHNIQUE: PA view of the chest with left lateral decubitus and supine views of the abdomen FINDINGS: Cardiomediastinal and hilar silhouettes are within normal limits. No pneumothorax, pleural effusion, focal airspace consolidation or overt pulmonary edema. General changes of the shoulders and spine. No pneumatosis or pneumoperitoneum identified. No urolith. Bowel gas pattern is nonobstructive. Gas-filled mildly prominent loop of bowel noted within the abdominal right upper quadrant. 4 mm calculus of the inferior pole right kidney. Indeterminate 4 mm right pelvic basin calcifications. Degenerative changes of the spine and hips. IMPRESSION: 1. No acute processes of the chest. 2. Nonobstructive bowel gas pattern without pneumoperitoneum. 3. Right nephrolithiasis. Indeterminate 4 mm right pelvic basin calcification suggestive of a ureteral calculus versus phlebolith. Correlate with urinalysis. The above report was generated using voice recognition software. It may contain grammatical, syntax or spelling errors. Electronically signed by: Margarito Golden M.D. 03/09/2019 6:49 PM ABDOMEN AND PELVIS CT WITH IV CONTRAST CT DOSE: 760.11 mGy.cm HISTORY: Acute lower abdominal pain with clinical concern for colonic diverticulitis. lower abd pain eval for divertic TECHNIQUE: Multiaxial CT images of the abdomen and pelvis were performed following the use of intravenous contrast. A dose lowering technique was utilized adhering to the principles of ALARA. COMPARISON STUDY: Acute abdominal series radiographs of same day, lumbar spine MRI 10/22/2015 FINDINGS: Mild subsegmental dependent bibasilar atelectasis. There is no pneumatosis or pneumoperitoneum identified. Imaged inferior cardiac chambers are unremarkable. There are multiple circumscribed hypodense lesions about the liver suggestive of probable cysts measuring up to 2.6 cm. Mild lobulation about the inferior right hepatic lobe. No intrahepatic biliary ductal dilation. The common bile duct is mildly dilated measuring up to 9 mm transversely. Additionally, there is mild distention of the gallbladder. No gallbladder wall thickening, cholelithiasis or choledocholithiasis identified. The spleen, pancreas and and adrenal glands appear unremarkable. There is a mixed cystic and solid lesion with enhancing mural nodularity about the anterior interpolar left kidney, 1.4 x 2.0 x 1.9 cm. Left renal vein appears normal. 4.3 cm cyst of the superior pole right kidney. 4 mm nonobstructing calculus of the inferior pole right kidney. Urinary bladder is unremarkable. Hysterectomy. No adnexal mass lesions. Moderate calcified plaque of the abdominal aorta without aneurysm. No adenopathy. Distended fluid-filled distal esophagus with small hiatal hernia. Multiple fluid-filled loops of large bowel are also noted. Circumferential wall thickening with mucosal hyperemia of the rectum with additional areas of wall thickening noted throughout the transverse, descending and sigmoid colon. Colonic diverticulosis without acute diverticulitis. No CT evidence of acute appendicitis. Small fat filled periumbilical hernia. Soft tissues are within normal limits. Atrophic changes about the left gluteal musculature. Degenerative changes of the spine, pelvis and hips. IMPRESSION: 1. Mixed cystic and solid lesion with enhancing mural nodularity about the interpolar left kidney measuring up to 2.0 cm is suggestive of renal cell carcinoma. 2. No adenopathy or evidence of metastatic disease. 3. Findings compatible with a nonspecific proctocolitis with associated diarrheal illness. 4. No bowel obstruction, pneumatosis or pneumoperitoneum. 5. Small hiatal hernia. 6. Additional findings as above. Electronically signed by: Margarito Golden M.D. 03/09/2019 8:34 PM ECG Data Attestation: I personally reviewed and interpreted this ECG as follows: Indication: vomiting and other (hypokalemia) Rate (beats per minute): 80 Rhythm: sinus rhythm Findings: + other (Prolonged QT of 484, QTC, no U-waves) Blood Pressure Blood Pressure Findings: Elevated blood pressure Blood Pressure Disposition: further management by hospitalist MDM Narrative I did evaluate the patient as noted above. Patient is presenting with abdominal pain. She did have 3 large bowel movements here and so her constipation is resolved. The nurse stated that the bowel movements were solid. IV access was established. I did order and personally reviewed the images of the patient's abdominal/chest x-ray as described above. She does not have any evidence of obstruction. I did order and review the patient's blood work as noted in the electronic medical record. Her white count is 12.6. She is not anemic per potassium is 2.6. She denies being on any diuretics or having any diarrhea. I did treat her with IV KCl. She was also given oral potassium. I did order and personally review the patient's 12-lead EKG as described above. She does have a prolonged QT consistent with hypokalemia. I did order a CT of the abdomen and pelvis. I did review the images myself as well as the radiology report as described above. The patient was placed on a continuous patient monitor. She has a colitis as well as a left renal mass concerning for renal cell carcinoma. I did discuss the test results with the patient and her family. I did discuss the case with the hospitalist and employment case manager. Impression & Plan Colitis, Hypokalemia, Renal mass Discharge Plan Visit Data Chief Complaint: Abdominal Pain ED Provider: Edgard Hurst Discharge Problem: Colitis, Hypokalemia, Renal mass Patient Disposition: Being Evaluated by Hospitalist Forms Stand Alone Forms: Call Back Authorization, [facility] Prescriptions Prescriptions: No Action celecoxib 200 mg capsule 200 mg PO DAILY RF: 0 nitrofurantoin macrocrystal 50 mg capsule 50 mg PO HS RF: 0 atorvastatin 20 mg tablet 20 mg PO HS RF: 0 pimecrolimus [Elidel] 1 % cream 1 applic topical DAILY RF: 0 indapamide 1.25 mg tablet 1.25 mg PO DAILY RF: 0 omeprazole 20 mg capsule,delayed release(DR/EC) 20 mg PO DAILY RF: 0 ramipril 10 mg capsule 10 mg PO DAILY RF: 0 Myrbetriq 50 mg tablet extended release 24 hr 50 mg PO DAILY RF: 0 Referrals Referrals: Kwame Monet MD [Primary Care Provider] - The scribe's documentation has been prepared under my direction and personally reviewed by me in its entirety. I confirm that the note above accurately reflects all work, treatment, procedures, and medical decision making performed by me.
[2019-03-09] MEDS ORDERED: ACETAMINOPHEN 325 MG TAB PO PRN (23:33)
[2019-03-09] MEDS ORDERED: POTASSIUM CHLORIDE 20 MEQ/15 ML UDC PO ONE (23:33)
[2019-03-09] MEDS ORDERED: ONDANSETRON INJ 2 MG/ML 2 ML VIAL IV PRN (23:33)
[2019-03-10 00:03] LABS: Prothrombin Time 10.6 Seconds (9.0-12.0)
[2019-03-10 06:08] LABS: Basophils # (auto) 0.02 K/uL (0-0.2); Basophils % (auto) 0.1 %; Eosinophils # (auto) 0.01 K/uL (0-0.5); Eosinophils % (auto) 0.1 %; Hematocrit (blood only) 35.8 % (37-47); Immature Granulocytes # (auto) 0.04 K/uL (0.00-0.02); Immature Granulocytes % (auto) 0.3 %; Lymphocytes # (auto) 1.57 K/uL (1.2-3.4); Lymphocytes % (auto) 10.5 %; Mean Corpuscular Hgb Conc 33.5 g/dL (32-36); Mean Corpuscular Volume 83.6 fL (80-100); Mean Platelet Volume 9.4 fL (7.4-10.4); Monocytes # (auto) 1.12 K/uL (0.11-0.59); Monocytes % (auto) 7.5 %; Neutrophils # (auto) 12.15 K/uL (1.4-6.5); Neutrophils % (auto) 81.5 %; Platelet Count 219 K/uL (130-400); RDW Coefficient of Variation 13.7 % (11.5-14.5); RDW Standard Deviation 41.3 fL (36.4-46.3); Red Blood Count 4.28 M/uL (4.2-5.4); White Blood Count 14.91 K/uL (4.8-10.8)
[2019-03-10 06:40] LABS: BUN Creatinine Ratio 20.2 (10-20); Calcium 8.7 mg/dl (8.5-10.1); Creatinine Clr Calc Pharmacy 85.3 ml/min; Est GFR (African American) 103.7; Est GFR (Non-African American) 89.5; Magnesium 1.9 mg/dl (1.8-2.4); Potassium 3.1 mmol/L (3.5-5.1)
[2019-03-10] MEDS ORDERED: INDAPAMIDE 1.25 MG TAB PO SCH (09:00)
[2019-03-10] MEDS ORDERED: MIRABEGRON ER 25 MG TAB PO SCH (09:00)
[2019-03-10] MEDS ORDERED: PANTOprazole 40 MG TAB PO SCH (09:00)
[2019-03-10] MEDS ORDERED: ENALAPRIL MALEATE 10 MG TAB PO SCH (09:00)
[2019-03-10] MEDS ORDERED: DOCUSATE SODIUM 100 MG CAP PO SCH (09:00)
[2019-03-10] MEDS ORDERED: CeleBREX 200 MG CAP PO SCH (09:00)
[2019-03-10] MEDS ORDERED: ENOXAPARIN INJ 40 MG/0.4 ML SYR SQ SCH (09:00)
--- NOTE | 2019-03-10 09:29 | Family Medicine Progress Note ---
Date of Service March 10, 2019 Assessment & Plan (1) Abdominal pain: 73-year-old female was admitted on 09 March 2019 for abdominal pain, proctocolitis, and hypokalemia. Abdominal pain, constipation, proctocolitis: Apparent long history of constipation including no bowel movement for > 1 week. Acute emesis earlier today as well. - In ED, afebrile, not tachycardic, moderately hypertensive, with normal room SpO2. WBC 12. X-ray of the chest noted no acute process. CT a/p with IV contrast noted nonspecific proctocolitis with associated diarrheal illness (with other findings as noted below). - Patient symptoms greatly improved/resolved after a bowel movement in the ED. Still some concern for developing infectious colitis. Monitor overnight for fever and/or tachycardia. Tylenol and Zofran as needed. Add Colace. Hypokalemia: Admit K 2.6. Only comparison is August 2018 which was K 2.7. Unknown source. - In ED was treated with 40 mEq p.o. and started on potassium riders. - Will continue p.o. potassium replacement. Recheck labs in a.m. Renal mass: CT a/p with IV contrast noted a mixed cystic and solid lesion of the left kidney measuring up to 2 cm suggestive of renal cell carcinoma. No adenopathy or evidence of metastatic disease. UA is pending. Admit Cr 0.86. Sounds like new news. - Discussed the same with family. Will need close outpatient follow-up for work-up. Incidental CT a/p findings: - Small hiatal hernia. - Colonic diverticulosis. - Small periumbilical hernia. - Probable liver cysts upwards of 2.6 cm. Elevated alkaline phosphatase: Admit AP 130. Remaining LFTs normal. Non-tender abdomen on H&P. - Can be evaluated as outpatient. Likely dementia: Family notes memory issues for the past year. Some difficulty here with basic questions. Ongoing medical issues (all per familys account): - Hypertension, hyperlipidemia: On home indapamide, ramipril, and atorvastatin. - Urinary incontinence, chronic UTI: On home Myrbetriq and chronic nitrofurantoin. - GERD, history of esophageal dilation: On home omeprazole. - Possible back pain: On home Celebrex. - Possible atopic dermatitis: On home Elidel. Code status: Full code. Diet: Full liquid diet. DVT prophy: Lovenox. PT/OT: Deferred. Disbo: Admit for observation to [facility] with telemetry. Results & Data Vital Signs (Past 12 Hours) Vital Signs Temp Pulse Pulse Resp BP Pulse Ox 03/10/19 09:05 74 110/67 03/10/19 07:54 36.7 C 75 18 107/59 L 95 03/10/19 04:14 79 03/10/19 04:03 36.7 C 74 18 126/76 98 03/10/19 01:41 37.1 C 85 18 125/74 95 03/09/19 22:45 85 20 112/52 L 97 03/09/19 22:07 83 20 115/61 96 Laboratory Results 03/10/19 03/10/19 03/09/19 Range/Units 05:45 05:45 17:45 WBC 14.91 H (4.8-10.8) K/uL RBC 4.28 (4.2-5.4) M/uL Hgb 12.0 (12.0-16.0) g/dL Hct 35.8 L (37-47) % MCV 83.6 (80-100) fL MCH 28.0 (25-34) pg MCHC 33.5 (32-36) g/dL RDW Std Deviation 41.3 (36.4-46.3) fL RDW Coeff of Thomas 13.7 (11.5-14.5) % Plt Count 219 (130-400) K/uL MPV 9.4 (7.4-10.4) fL Immature Gran % (Auto) 0.3 % Neut % (Auto) 81.5 % Lymph % (Auto) 10.5 % [place] % (Auto) 7.5 % Eos % (Auto) 0.1 % Baso % (Auto) 0.1 % Immature Gran # (Auto) 0.04 H (0.00-0.02) K/uL Neut # (Auto) 12.15 H (1.4-6.5) K/uL Lymph # (Auto) 1.57 (1.2-3.4) K/uL [place] # (Auto) 1.12 H (0.11-0.59) K/uL Eos # (Auto) 0.01 (0-0.5) K/uL Baso # (Auto) 0.02 (0-0.2) K/uL PT 10.6 (9.0-12.0) Seconds INR 1.0 (0.9-1.1) Sodium 142 (136-145) mmol/L Potassium 3.1 L D (3.5-5.1) mmol/L Chloride 106 (98-107) mmol/L Carbon Dioxide 29 (21-32) mmol/L Anion Gap 7.0 (3-11) BUN 12 (7-18) mg/dl Creatinine 0.62 (0.6-1.2) mg/dl Est Cr Clr Drug Dosing 85.3 Est GFR ( Amer) 103.7 Est GFR (Non-Af Amer) 89.5 BUN/Creatinine Ratio 20.2 H (10-20) Glucose 100 H (70-99) mg/dl Calcium 8.7 (8.5-10.1) mg/dl Magnesium 1.9 (1.8-2.4) mg/dl Total Bilirubin (0.2-1) mg/dl AST (15-37) U/L ALT (12-78) U/L Alkaline Phosphatase (45-117) U/L Total Protein (6.4-8.2) gm/dl Albumin (3.4-5.0) gm/dl Globulin (2.5-4.0) gm/dl Albumin/Globulin Ratio (0.9-2) Lipase (73-393) U/L 03/09/19 03/09/19 Range/Units 17:45 17:45 WBC 12.64 H (4.8-10.8) K/uL RBC 5.05 (4.2-5.4) M/uL Hgb 14.3 (12.0-16.0) g/dL Hct 41.9 (37-47) % MCV 83.0 (80-100) fL MCH 28.3 (25-34) pg MCHC 34.1 (32-36) g/dL RDW Std Deviation 39.8 (36.4-46.3) fL RDW Coeff of Thomas 13.3 (11.5-14.5) % Plt Count 216 (130-400) K/uL MPV 9.6 (7.4-10.4) fL Immature Gran % (Auto) 0.2 % Neut % (Auto) 92.8 % Lymph % (Auto) 5.0 % [place] % (Auto) 1.8 % Eos % (Auto) 0.1 % Baso % (Auto) 0.1 % Immature Gran # (Auto) 0.03 H (0.00-0.02) K/uL Neut # (Auto) 11.73 H (1.4-6.5) K/uL Lymph # (Auto) 0.63 L (1.2-3.4) K/uL [place] # (Auto) 0.23 (0.11-0.59) K/uL Eos # (Auto) 0.01 (0-0.5) K/uL Baso # (Auto) 0.01 (0-0.2) K/uL PT (9.0-12.0) Seconds INR (0.9-1.1) Sodium 141 (136-145) mmol/L Potassium 2.6 L (3.5-5.1) mmol/L Chloride 102 (98-107) mmol/L Carbon Dioxide 28 (21-32) mmol/L Anion Gap 11.0 (3-11) BUN 12 (7-18) mg/dl Creatinine 0.86 (0.6-1.2) mg/dl Est Cr Clr Drug Dosing Not Reportable Est GFR ( Amer) 77.7 Est GFR (Non-Af Amer) 67.0 BUN/Creatinine Ratio 14.3 (10-20) Glucose 162 H (70-99) mg/dl Calcium 9.6 (8.5-10.1) mg/dl Magnesium (1.8-2.4) mg/dl Total Bilirubin 0.7 (0.2-1) mg/dl AST 23 (15-37) U/L ALT 32 (12-78) U/L Alkaline Phosphatase 130 H (45-117) U/L Total Protein 7.5 (6.4-8.2) gm/dl Albumin 3.7 (3.4-5.0) gm/dl Globulin 3.8 (2.5-4.0) gm/dl Albumin/Globulin Ratio 1.0 (0.9-2) Lipase 286 (73-393) U/L Medications Administered Current Inpatient Medications Acetaminophen (Tylenol) 650 mg PO Q4H PRN PRN Reason: pain/fever Stop: 04/08/19 23:32 Atorvastatin Calcium (Lipitor) 20 mg PO HS [facility] Stop: 04/09/19 20:59 Celecoxib (Celebrex) 200 mg PO DAILY [facility] Stop: 04/09/19 08:59 Last Admin: 03/10/19 08:40 Dose: 200 mg Documented by: Docusate Sodium (Colace) 100 mg PO DAILY [facility] Stop: 04/09/19 08:59 Last Admin: 03/10/19 08:41 Dose: 100 mg Documented by: Enalapril Maleate (Vasotec) 40 mg PO DAILY [facility] Stop: 04/09/19 08:59 Enoxaparin Sodium (Lovenox) 40 mg SQ Q24H [facility] Stop: 04/09/19 08:59 Last Admin: 03/10/19 08:41 Dose: 40 mg Documented by: Indapamide (Lozol) 1.25 mg PO DAILY [facility] Stop: 04/09/19 08:59 Ioversol (Optiray 320 100ml) 93 ml IV ONCE PRN PRN Reason: Interaction Checking Stop: 03/13/19 19:59 Last Admin: 03/09/19 20:01 Dose: 93 ml Documented by: Mirabegron (Myrbetriq Er) 50 mg PO DAILY [facility] Stop: 04/09/19 08:59 Last Admin: 03/10/19 08:39 Dose: 50 mg Documented by: Nitrofurantoin Macrocrystals (Macrodantin) 50 mg PO HS [facility] Stop: 03/20/19 20:59 Ondansetron HCl (Zofran) 4 mg IV Q6H PRN PRN Reason: Nausea Stop: 04/08/19 23:32 Pantoprazole Sodium (Protonix) 40 mg PO DAILY [facility] Stop: 04/09/19 08:59 Last Admin: 03/10/19 08:41 Dose: 40 mg Documented by: PG Care Time/CCT Total # of Minutes Spent Total Time Spent with Patient: Total time spent is greater than 50% in coordination of care (as documented) at patient's floor/unit and/or counseling patient:
[2019-03-10] MEDS: POTASSIUM CHLORIDE 20 MEQ TABCR PO SCH ×3 (11:22→14:56)
--- NOTE | 2019-03-10 12:05 | Discharge Summary ---
Date of Service March 10, 2019 Admission HPI Per Admitting Provider 73-year-old female presented to the emergency department complaining of acute nausea and vomiting as well as chronic abdominal pain for years. The patient knows her name, date of , that she is at [facility] but not the city or the date. For most of the H&P, she was fixated on some discomfort at her right arm IV site where her potassium rider was being given. The below history is based on the account of her and [id number] at bedside. Patient lives with her . There is been some level of abdominal discomfort and constipation for perhaps a year now. She sees Dr. Monet (nephrology) as her PCP but they state it is "not as often as it should be". Earlier today she had perhaps over 5 episodes of non-bloody emesis. Apparently this made her quite weak and she had to crawl out of the bathroom to her for help. She also had increased abdominal pain, crampy in nature, with last bowel movement over a week ago. No known fevers or recent illnesses. Her says that she does not complain much at home. At the time of this H&P, the patient had already had a large bowel movement in the ED. When asked by her , patient said that her abdominal pain is now "okay" and possibly is resolved. Otherwise the patient and family did not have any immediate concerns. All per family: - Past medical history includes hypertension, hyperlipidemia, urinary incontinence, chronic UTIs, GERD, esophageal issues, back pain, ongoing evaluation for dementia. - Past surgical history includes hysterectomy. -Social history includes denying tobacco and alcohol use. Lives at home with . Admission Exam Per Admitting Provider GENERAL: Awake, alert, well-appearing, in no acute distress. Oriented to person, roughly to place, but not to date. HENT: Normocephalic, atraumatic. Oropharynx unremarkable. EYES: Normal conjunctiva. Sclera non-icteric. NECK: Inspection normal. Supple and full ROM. CARDIAC: +S1S2 RRR, no murmurs. Some thoracic kyphosis. RESPIRATORY: Clear to auscultation. No wheezes or rales. Normal respiratory effort. GI: +BS, soft, non-distended. No tenderness to palpation. No rebound or guarding. EXTREMITIES: No pedal edema or calf tenderness. Moving all extremities naturally and easily. NEURO: No gross neuro deficits. Principal Diagnosis Abdominal pain, proctocolitis, hypokalemia, constipation Discharge Exam GENERAL: Awake, alert, well-appearing, in no acute distress. Oriented to person, roughly to place, but not to date. HENT: Normocephalic, atraumatic. Oropharynx unremarkable. EYES: Normal conjunctiva. Sclera non-icteric. NECK: Inspection normal. Supple and full ROM. CARDIAC: +S1S2 RRR, no murmurs. Some thoracic kyphosis. RESPIRATORY: Clear to auscultation. No wheezes or rales. Normal respiratory effort. GI: +BS, soft, non-distended. Some tenderness to palpation in the left upper and left lower quadrants. EXTREMITIES: No pedal edema or calf tenderness. Moving all extremities naturally and easily. NEURO: No gross neuro deficits. Discharge Data Allergies Allergy/AdvReac Type Severity Reaction Status Date / Time dexamethasone Allergy Unknown hives Unverified 03/09/19 17:23 methylprednisolone Allergy Unknown hives Unverified 03/09/19 17:23 triamcinolone Allergy Unknown hives Unverified 03/09/19 17:23 Consultations 03/09/19 21:20 ED Decision to Admit Stat Ordered Studies 03/09/19 19:06 CT abd pelvis IV con only Stat Hospital Course (1) Abdominal pain: 73-year-old female was admitted on 09 March 2019 for abdominal pain, proctocolitis, and hypokalemia. Patient follows with Dr. Monet Abdominal pain, constipation, proctocolitis: This is not a new problem for the patient she has a long history of constipation per the family they question whether this was induced secondary to previous laxative therapy. Prior to presentation she had not had a bowel movement for > 1 week. Acute emesis earlier today as well. In ED, afebrile, not tachycardic, moderately hypertensive, with normal room SpO2. WBC 12. X-ray of the chest noted no acute process. CT a/p with IV contrast noted nonspecific proctocolitis with associated diarrheal illness (with other findings as noted below). Patient symptoms greatly improved/resolved after a bowel movement in the ED. She was monitored overnight for development of fever or tachycardia as there was still some concern for developing infectious colitis. She tolerated her diet today and was subsequently discharged. She is to take MiraLAX twice daily on discharge until follow-up with her primary care physician Dr. Monet Hypokalemia: Admit K 2.6. Only comparison is August 2018 which was K 2.7. Unknown source. In ED was treated with 40 mEq p.o. and started on potassium riders. A.m. labs showed potassium of 3.1 repleted 20 M EQ x3 every 2 hours. On discharge recommend 20 M EQ's daily until follow-up with Dr. Monet Renal mass: CT a/p with IV contrast noted a mixed cystic and solid lesion of the left kidney measuring up to 2 cm suggestive of renal cell carcinoma. No adenopathy or evidence of metastatic disease. Admit Cr 0.86. This is a new diagnosis for the patient discussed with family. Will need close outpatient follow-up for work-up. Additional incidental CT a/p findings: - Small hiatal hernia. - Colonic diverticulosis. - Small periumbilical hernia. - Probable liver cysts upwards of 2.6 cm. Elevated alkaline phosphatase: Admit AP 130. Remaining LFTs normal. Non-tender abdomen on H&P. Deferred further work-up to outpatient physician Likely dementia: Family notes memory issues for the past year. Some difficulty here with basic questions. Ongoing medical issues (all per familys account): - Hypertension, hyperlipidemia: On home indapamide, ramipril, and atorvastatin. - Urinary incontinence, chronic UTI: On home Myrbetriq and chronic nitrofurantoin. - GERD, history of esophageal dilation: On home omeprazole. - Possible back pain: On home Celebrex. - Possible atopic dermatitis: On home Elidel. Code status: Full code. Diet: Full liquid diet. DVT prophy: Lovenox. PT/OT: Deferred. Dispo: Home Total Time Total Time Spent Total Time Spent (In Minutes): >30 Discharge Plan Discharge Items Patient Disposition: Home - Self-Care Reason For Visit: ABDOMINAL PAIN, PROCTOCOLITIS, HYPOKALEMIA Discharge Diagnosis: Abdominal pain, proctocolitis, hypokalemia, constipation Discharge Goals: Decrease discomfort and Therapeutic intervention Activity: Resume your previous activity Activity Comment: as tolerated Non-emergency contact: Primary Care Provider Call non-emergency contact if: you have any medication questions, your symptoms worsen, your pain is worsening and your temperature is above 101.5 Follow-up/Referrals: Kwame Monet MD [Primary Care Provider] - Diet: Regular Addtl Provider Instructions: Care instructions: You were admitted to [facility] for treatment of Abdominal pain, proctocolitis, hypokalemia, constipation. A discharge summary will be sent to your primary care physician to ensure continuity of care.Please bring this discharge summary with you to your next office appointment so that your provider can review it at that time. Follow-up appointments: - Keep all your follow-up appointments as already scheduled. If you cannot make an appointment, notify your provider. - Please call to request a follow-up appointment with your primary care physician within one week of discharge. Please let us know if you are unable to obtain an appointment Medications: - Your medication list has been reviewed and reconciled upon discharge to ensure accuracy and continuity of care. - You are provided with a list of all your current medications at this time. Please review this list closely and make note of any changes. - Please take all of your medications exactly as prescribed. - Tell your primary care provider if you cannot afford your medications. - Call your primary care provider if you are having any side effects or any other problems. - Call your primary care provider before taking any over the counter medications or supplements, including herbals and vitamins, because some of these may interact with your current medications and/or make your symptoms worse. *Please begin taking MiraLAX 1 capful twice daily until seen at follow-up with Dr. Monet* *Please begin taking 20 mEq of potassium in the morning until follow-up with Dr. Monet* these have been called in to the [facility] Symptoms: Please call your primary care provider for symptoms including, but not limited to: fevers (temperatures greater than 100.4), chills, intractable nausea or vomiting, diarrhea, rash, shortness of breath, bleeding, pain, or if you expe rience any worsening of the symptoms that brought you to the hospital. For EMERGENCY and VERY SERIOUS health-related issues, such as chest pain, shortness of breath, or sudden onset of the symptoms that brought you to the hospital, you may need to call 911 or go directly to the Emergency Room It has been our privilege to take care of you during your hospital stay. And Above All Else Fell Better! Best Wishes, Bennett Swenson MD PGY1 Resident, Family & Community Medicine [facility] at [address], [address] : [address] [place] [address] Prescriptions: New potassium chloride [Klor-Con M20] 20 mEq Tablet,Er Particles/Crystals 20 meq PO DAILY 30 Days Qty: 30 RF: 3 Continued celecoxib 200 mg capsule 200 mg PO DAILY RF: 0 nitrofurantoin macrocrystal 50 mg capsule 50 mg PO HS RF: 0 atorvastatin 20 mg tablet 20 mg PO HS RF: 0 pimecrolimus [Elidel] 1 % cream 1 applic topical DAILY RF: 0 indapamide 1.25 mg tablet 1.25 mg PO DAILY RF: 0 omeprazole 20 mg capsule,delayed release(DR/EC) 20 mg PO DAILY RF: 0 ramipril 10 mg capsule 10 mg PO DAILY RF: 0 Myrbetriq 50 mg tablet extended release 24 hr 50 mg PO DAILY RF: 0 Stand-Alone Forms: Call Back Authorization, My [facility] Discharge Orders: Discharge Order (Routine); Ordered 03/10/19 Ordered By: Bennett Swenson Admission Data Admit Date/Time: 03/09/19 22:20 Attending Provider: Elizabeth Barry Admit Provider: Sade Swenson Primary Care Provider: Kwame Monet Other Providers: Sade Swenson Service: Telemetry Medical Other Interventions: Discharge Summary Assessment (RN) Last Done: 03/10/19 15:20 DC Date/Time DO NOT enter until pt leaves facility: 03/10/19 16:35 Supervising Physician Co-Signing Physician Notes Resident Physician Supervision Note: I independently interviewed and examined the patient and verified the avelar history and physical, reviewed labs and image studies, discussed the case with the resident Dr. Swenson and agree with the findings and care plan. Time spent in discharge 35 min Resident Activity Tracking Resident Involvement: Resident Care Provided Care Provided: Adult Hospital Medicine
[2019-03-10] MEDS ORDERED: ATORVASTATIN 20 MG TAB PO SCH (21:00)
[2019-03-10] MEDS ORDERED: NITROFURANTOIN MACROCRYSTAL 50 MG CAP PO SCH (21:00)
== END 2019-03-10 16:35 | disposition home or self-care (01) ==
LOC: ED 16:50 → 2N 16:50 → SUATTDRO 22:20 → 2N 23:07

== ENCOUNTER 2020-01-03 14:19 | Observation (INO) ==
[2020-01-03] MEDS ORDERED: SODIUM CHLORIDE 0.9% 1000ML 500 ML IV ONE (14:41)
--- NOTE | 2020-01-03 15:07 | Emergency Department Note ---
History of Present Illness General Chief complaint: Urinary Symptoms Stated complaint: POSSIBLE UTI, HALLUCINATIONS, SWOLLEN FEET Source: patient Mode of arrival: ambulatory Limitations: no limitations History of Present Illness Provider complaint: dysuria, abdominal pain, hallucinations Onset (ago): day(s) 1 Maximum Pain Intensity: 5 Treatments prior to arrival: none This 74-year-old female patient presents the emergency department today, a mbulatory, coming by her daughter who provides a history due to the patient's past medical history of dementia/Alzheimer's. The patient has been complaining of urinary tract infection symptoms since yesterday. She describes burning with urination, suprapubic pressure, and floaters in her vision and seeing bugs on the hennessy. These are symptoms consistent with UTIs in the past. The patient has also been experiencing ankle and foot swelling which has been ongoing for the past few days as well. This is a new symptom. The patient does not have a history of congestive heart failure or peripheral edema. Patient has been afebrile. There is no nausea, vomiting, numbness, tingling, or weakness. There is no chest pain or dyspnea. The patient does have chronic constipation. There is no headache, dizziness, or neck pain. The patient has taken no medications for her symptoms. PCP recommended they come to the ED for evaluation. Patient rates her pain 5/10. Home Medications Home Medications Medication Instructions Recorded Confirmed Type atorvastatin 20 mg PO HS 03/09/19 01/03/20 History celecoxib 200 mg PO DAILY 03/09/19 01/03/20 History omeprazole 20 mg PO DAILY 03/09/19 01/03/20 History pimecrolimus [Elidel] 1 applic TOPICAL DAILY PRN 03/09/19 01/03/20 History nitrofurantoin macrocrystal 50 mg 50 mg PO HS #90 cap 05/28/19 01/03/20 Rx capsule indapamide 1.25 mg tablet 1.25 mg PO DAILY #90 tab 07/08/19 01/03/20 Rx ramipril 10 mg capsule 10 mg PO DAILY #90 cap 07/08/19 01/03/20 Rx flavoxate 100 mg tablet 100 mg PO DAILY tab 07/25/19 01/03/20 History potassium chloride 20 mEq 20 meq PO DAILY 07/25/19 01/03/20 History tablet,extended release ascorbic acid (vitamin C) [Vitamin 500 mg PO DAILY 01/03/20 01/03/20 History C] docusate sodium 100 mg PO BID PRN 01/03/20 01/03/20 History donepezil [Aricept] 5 mg PO HS 01/03/20 01/03/20 History Allergies Allergy/AdvReac Type Severity Reaction Status Date / Time dexamethasone Allergy Unknown hives Unverified 01/03/20 17:50 methylprednisolone Allergy Unknown hives Unverified 01/03/20 17:50 triamcinolone Allergy Unknown hives Unverified 01/03/20 17:50 Neosporin OINT Allergy Unknown Unknown Uncoded 01/03/20 17:50 Nickel Allergy Unknown Unknown Uncoded 01/03/20 17:50 Voltaren TBEC Allergy Unknown Unknown Uncoded 01/03/20 17:50 Past Med/Surg History Medical History Abdominal pain (Resolved) Chronic UTI (urinary tract infection) (Chronic) Constipation (Chronic) Dementia (Chronic) Diverticulosis (Chronic) Elevated alkaline phosphatase level (Chronic) GERD (gastroesophageal reflux disease) (Chronic) Hiatal hernia (Chronic) Hyperlipidemia (Chronic) Hypertension (Chronic) Hypokalemia (Acute) Hypokalemia (Resolved) Liver cyst (Chronic) Periumbilical hernia (Chronic) Proctocolitis (Resolved) Renal mass (Chronic) Renal mass, left (Chronic) Urinary incontinence (Chronic) Family History (Updated 10/16/19 @ 09:21 by Miranda Montes De Oca) Denies family history of Ovarian cancer Prostate cancer Myocardial infarction Breast cancer Colorectal cancer Social History Preferred Language: Bengali Communication Ability: Effective Communication Ability Comment: patient has alzheimers Lpn Rn Required: No Beliefs That Will Affect Care: None marital status: Current Living Situation: Spouse current occupational status: retired Other Information That Helps Us Care for You: No Feels Safe at Home: Yes Smoking Status: Never smoker Second Hand Exposure: No ; Hx Alcohol Use: No Hx Substance Use: No Review of Systems A total of 10 systems reviewed and were otherwise negative Physical Exam Vital Signs Vital Signs - 24 hr 01/03/20 14:22 01/03/20 15:01 01/03/20 15:14 Temperature 36.6 C Temperature Source Oral Pulse Rate 73 87 88 Pulse Rate from SpO2 Sensor 86 89 Respiratory Rate 16 20 21 Blood Pressure 145/71 H 173/125 H Blood Pressure Mean 95 138 Pulse Oximetry 100 100 100 Oxygen Delivery Method Room Air Sepsis Recent Fever Within 48 Hours No Sepsis New/Unexplained Change in Mental Status No Sepsis Action Taken by Nursing No Action Required 01/03/20 15:35 01/03/20 16:19 01/03/20 16:33 Temperature Temperature Source Pulse Rate 78 77 Pulse Rate from SpO2 Sensor Respiratory Rate 16 Blood Pressure Blood Pressure Mean Pulse Oximetry Oxygen Delivery Method Sepsis Recent Fever Within 48 Hours Sepsis New/Unexplained Change in Mental Status Sepsis Action Taken by Nursing 01/03/20 16:35 01/03/20 17:00 01/03/20 17:01 Temperature Temperature Source Pulse Rate 70 80 69 Pulse Rate from SpO2 Sensor Respiratory Rate 16 21 23 Blood Pressure 168/48 H 149/43 H Blood Pressure Mean 152 100 Pulse Oximetry 92 96 Oxygen Delivery Method Sepsis Recent Fever Within 48 Hours Sepsis New/Unexplained Change in Mental Status Sepsis Action Taken by Nursing 01/03/20 17:02 Temperature Temperature Source Pulse Rate 71 Pulse Rate from SpO2 Sensor Respiratory Rate 15 Blood Pressure Blood Pressure Mean Pulse Oximetry Oxygen Delivery Method Sepsis Recent Fever Within 48 Hours Sepsis New/Unexplained Change in Mental Status Sepsis Action Taken by Nursing VITALS: Vitals are noted on the nurse's note and reviewed by myself. Vital signs stable. GENERAL: This is a 74-year-old white female, in no acute distress, n ondiaphoretic, well-developed well-nourished. SKIN: Bilateral lower extremity 2+ pitting edema to the mid meyer. No calf tenderness. The feet are mildly erythematous. No evidence of cellulitis or ab scess. No induration. The skin was without rashes, erythema, or bruising. There is no tenting of the skin. Capillary refill less than 2 seconds. HEAD: Normocephalic atraumatic. EYES: PERRLA. No nystagmus noted. Sclera without icterus. NECK: Supple without nuchal rigidity. No lymphadenopathy. No thyromegaly. Cervical spine is nontender. No JVD. HEART: Regular rate and rhythm without murmurs gallops or rubs. LUNGS: Clear to auscultation bilaterally without wheezes, rales or rhonchi. No retractions or accessory muscle use. ABDOMEN: Positive bowel sounds x 4. Normal tympanic percussion. Suprapubic tenderness palpation. Abdomen is otherwise soft, nontender, without masses or organomegaly. No guarding or rebound tenderness. Positive CVA tenderness bilaterally. MUSCULOSKELETAL: No muscle atrophy, erythema, or edema except as noted. Full range of motion without joint tenderness in all extremities. No tenderness to palpation. Normal gait. Strength 5/5 throughout. NEURO: Patient was alert and oriented to person place and time. Normal sensation to light and sharp touch. Deep tendon reflexes 2+ throughout. No focal neurological deficits. Course Course The patient was seen and evaluated as above. An order was placed for continuous cardiac monitoring. The monitor shows a normal sinus rhythm at a rate of 86 bpm. IV access obtained, labs drawn. Patient medicated with IV fluids. Nursing staff attempted to obtain an EKG, the patient was unable to tolerate it became agitated. She was given 1 mg IV lorazepam. Imaging performed and reviewed by myself and radiologist as noted. Labs reviewed by myself. Patient medicated with IV Rocephin. I discussed the findings with the patient and daughter at bedside. Patient's daughter is hesitant to take the patient home due to her hallucinations. The patient lives at home with her who is also uncomfortable. I discussed the case with my attending. I discussed the case with the warehouse delivery manager. I discussed the case with the [facility] hospitalist, Dr. Torres. He did agree to see and evaluate the patient for admission. Administered Medications Discontinued Medications Sodium Chloride (Nss 1000ml) 500 mls @ 999 mls/hr IV .Q31M ONE Stop: 01/03/20 15:11 Last Infusion: 01/03/20 15:40 Dose: 0 mls/hr Documented by: [id number] Admin: 01/03/20 15:04 Dose: 999 mls/hr Documented by: [id number] Lorazepam (Ativan) 1 mg in 2 mls @ 2 mls/min IV NOW STA Stop: 01/03/20 15:25 Last Admin: 01/03/20 15:37 Dose: 2 mls/min Documented by: [id number] Ceftriaxone Sodium (Rocephin) 1,000 mg in 50 mls @ 100 mls/hr IV NOW STA Stop: 01/03/20 16:12 Last Infusion: 01/03/20 16:22 Dose: 0 mls/hr Documented by: [id number] Admin: 01/03/20 15:48 Dose: 100 mls/hr Documented by: [id number] Ioversol (Optiray 320 100ml) 94 ml IV ONCE PRN PRN Reason: Interaction Checking Stop: 01/07/20 16:11 Last Admin: 01/03/20 16:12 Dose: 94 ml Documented by: [id number] Medical Decision Making Differential Diagnosis Etiologies such as infections, genitourinary, UTI, cardiac etiology, neurologic etiology, acute psychosis, dementia, heart failure, DVT, PE, as well as others were entertained. Medical Records Attestation: I reviewed the patient's medical records. Home Medications Current Medication List: was personally reviewed by me Laboratory Data Attestation: I reviewed the patient's lab results. No leukocytosis, anemia, thrombocytopenia. Renal, hepatic function, and electrolytes without significant abnormality. Coags normal. BNP 34. Troponin negative. TSH 2.840. Lipase 134. Urinalysis concerning for 1+ bacteria, leukoesterase, and red blood cells. Result diagrams: 01/03/20 14:55 01/03/20 14:55 Lab Results 01/03/20 01/03/20 01/03/20 Range/Units 14:55 14:55 14:55 WBC 5.35 (4.8-10.8) K/uL RBC 4.85 (4.2-5.4) M/uL Hgb 13.5 (12.0-16.0) g/dL Hct 41.3 (37-47) % MCV 85.2 (80-100) fL MCH 27.8 (25-34) pg MCHC 32.7 (32-36) g/dL RDW Std Deviation 44.2 (36.4-46.3) fL RDW Coeff of Thomas 14.0 (11.5-14.5) % Plt Count 252 (130-400) K/uL MPV 9.8 (7.4-10.4) fL Immature Gran % (Auto) 0.0 % Neut % (Auto) 67.3 % Lymph % (Auto) 21.1 % Cedar % (Auto) 10.5 % Eos % (Auto) 0.9 % Baso % (Auto) 0.2 % Immature Gran # (Auto) 0.00 (0.00-0.02) K/uL Neut # (Auto) 3.60 (1.4-6.5) K/uL Lymph # (Auto) 1.13 L (1.2-3.4) K/uL Cedar # (Auto) 0.56 (0.11-0.59) K/uL Eos # (Auto) 0.05 (0-0.5) K/uL Baso # (Auto) 0.01 (0-0.2) K/uL PT 10.3 (9.0-12.0) Seconds INR 1.0 (0.9-1.1) APTT 26.2 (21.0-31.0) Seconds PTT Ratio 0.9 Sodium 140 (136-145) mmol/L Potassium 3.8 (3.5-5.1) mmol/L Chloride 105 (98-107) mmol/L Carbon Dioxide 29 (21-32) mmol/L Anion Gap 5.0 (3-11) BUN 11 (7-18) mg/dl Creatinine 0.68 (0.6-1.2) mg/dl Est Cr Clr Drug Dosing Not Reportable Est GFR ( Amer) 99.9 Est GFR (Non-Af Amer) 86.2 BUN/Creatinine Ratio 16.3 (10-20) Glucose 107 H (70-99) mg/dl Calcium 9.2 (8.5-10.1) mg/dl Magnesium 2.1 (1.8-2.4) mg/dl Total Bilirubin 0.4 (0.2-1) mg/dl AST 14 L (15-37) U/L ALT 24 (12-78) U/L Alkaline Phosphatase 96 (45-117) U/L Troponin I < 0.015 (0-0.045) ng/ml NT-Pro-B Natriuret Pep 34 (0-900) pg/ml Total Protein 7.8 (6.4-8.2) gm/dl Albumin 3.7 (3.4-5.0) gm/dl Globulin 4.1 H (2.5-4.0) gm/dl Albumin/Globulin Ratio 0.9 (0.9-2) Lipase 134 (73-393) U/L TSH 2.840 (0.300-4.500) uIu/ml Urine Color Urine Appearance (Clear) Urine pH (4.5-7.5) Ur Specific Orange (1.000-1.030) Urine Protein (Negative) Urine Glucose (UA) (Negative) Urine Ketones (Negative) Urine Blood (Negative) Urine Nitrite (Negative) Urine Bilirubin (Negative) Urine Urobilinogen (Negative) Ur Leukocyte Esterase (Negative) Urine RBC (0-4) /hpf Urine WBC (0-5) /hpf Ur Epithelial Cells (0-5) /lpf Urine Bacteria (Negative) Hepatitis C Ab Screen (Neg) 01/03/20 01/03/20 Range/Units 14:55 14:55 WBC (4.8-10.8) K/uL RBC (4.2-5.4) M/uL Hgb (12.0-16.0) g/dL Hct (37-47) % MCV (80-100) fL MCH (25-34) pg MCHC (32-36) g/dL RDW Std Deviation (36.4-46.3) fL RDW Coeff of Thomas (11.5-14.5) % Plt Count (130-400) K/uL MPV (7.4-10.4) fL Immature Gran % (Auto) % Neut % (Auto) % Lymph % (Auto) % Cedar % (Auto) % Eos % (Auto) % Baso % (Auto) % Immature Gran # (Auto) (0.00-0.02) K/uL Neut # (Auto) (1.4-6.5) K/uL Lymph # (Auto) (1.2-3.4) K/uL Cedar # (Auto) (0.11-0.59) K/uL Eos # (Auto) (0-0.5) K/uL Baso # (Auto) (0-0.2) K/uL PT (9.0-12.0) Seconds INR (0.9-1.1) APTT (21.0-31.0) Seconds PTT Ratio Sodium (136-145) mmol/L Potassium (3.5-5.1) mmol/L Chloride (98-107) mmol/L Carbon Dioxide (21-32) mmol/L Anion Gap (3-11) BUN (7-18) mg/dl Creatinine (0.6-1.2) mg/dl Est Cr Clr Drug Dosing Est GFR ( Amer) Est GFR (Non-Af Amer) BUN/Creatinine Ratio (10-20) Glucose (70-99) mg/dl Calcium (8.5-10.1) mg/dl Magnesium (1.8-2.4) mg/dl Total Bilirubin (0.2-1) mg/dl AST (15-37) U/L ALT (12-78) U/L Alkaline Phosphatase (45-117) U/L Troponin I (0-0.045) ng/ml NT-Pro-B Natriuret Pep (0-900) pg/ml Total Protein (6.4-8.2) gm/dl Albumin (3.4-5.0) gm/dl Globulin (2.5-4.0) gm/dl Albumin/Globulin Ratio (0.9-2) Lipase (73-393) U/L TSH (0.300-4.500) uIu/ml Urine Color Yellow Urine Appearance Slightly Cloudy (Clear) Urine pH 7.5 (4.5-7.5) Ur Specific Orange 1.010 (1.000-1.030) Urine Protein Negative (Negative) Urine Glucose (UA) Negative (Negative) Urine Ketones Negative (Negative) Urine Blood Trace H (Negative) Urine Nitrite Negative (Negative) Urine Bilirubin Negative (Negative) Urine Urobilinogen Negative (Negative) Ur Leukocyte Esterase 3+ H (Negative) Urine RBC 0-4 (0-4) /hpf Urine WBC 0-5 (0-5) /hpf Ur Epithelial Cells 5-10 H (0-5) /lpf Urine Bacteria 1+ H (Negative) Hepatitis C Ab Screen Neg (Neg) Imaging Data Radiologist's Impression: CT OF THE HEAD WITHOUT CONTRAST CLINICAL HISTORY: hallucinations COMPARISON STUDY: No previous studies for comparison. TECHNIQUE: Helical axial images of the head were obtained without IV contrast. Automated exposure control was utilized for the study. A dose lowering technique was utilized adhering to the principles of ALARA. FINDINGS: No acute intracranial hemorrhage, midline shift or mass effect is present. Jugular system is unremarkable. The basilar cisterns are patent. There are no extra-axial collections. Note is made of mild atrophy. There are no findings to suggest acute dural sinus thrombosis or acute territorial infarct. No calvarial fracture is present. Left sphenoid sinus is opacified. Mastoid air cells are clear. IMPRESSION: 1. No acute intracranial findings. 2. Opacified left sphenoid sinus. ACT 112: Negative or not required by law. Electronically signed by: Johan Jennings M.D. 01/03/2020 4:14 PM XR chest 1V portable HISTORY: 74 years-old Female edema acute shortness of breath COMPARISON: Chest CT 05/14/2019 TECHNIQUE: Portable AP view of the chest FINDINGS: Cardiac silhouette is mildly enlarged. The patient is rotated. No pneumothorax, large pleural effusion or overt pulmonary edema. Mild bibasilar opacities sugges t probable atelectasis. Degenerative changes of the shoulders and spine. IMPRESSION: 1. Cardiomegaly without overt pulmonary edema. 2. Mild bibasilar densities suggest probable atelectasis. Pneumonitis considered less likely. ACT 112: Negative or not required by law. The above report was generated using voice recognition software. It may contain grammatical, syntax or spelling errors. Electronically signed by: Margarito Golden M.D. 01/03/2020 3:[address] OF THE ABDOMEN AND PELVIS WITH CONTRAST CLINICAL HISTORY: flank pain, dysuria COMPARISON STUDY: CT of the abdomen and pelvis March 09, 2019. Renal ultrasound May 14, 2019. MRI of the abdomen September 24, 2019. TECHNIQUE: Following IV administration of 94 mL of Optiray-320, axial images of the abdomen and pelvis were obtained from the lung bases to the proximal femurs. Images were reviewed in the axial, sagittal, and coronal planes. IV contrast was administered without complication. Automated exposure control was utilized for the study. A dose lowering technique was utilized adhering to the principles of ALARA. CT DOSE: 1116.21 mGy.cm FINDINGS: Lung bases are unremarkable. This exam is compromised by motion artif act. Several hepatic cysts are again noted. No new hepatic lesions are present. No peripancreatic or pericholecystic infiltration is present. There is no biliary or pancreatic ductal dilatation. The spleen, adrenal glands and pancreas are unremarkable. There is no pancreatic ductal dilatation. A 2 cm mixed solid and cystic lesion within the midpole the left kidney is similar to CT of March 09, 2019. Additional bilateral renal lesions reflect cysts. There is no hydronephrosis. A 3 mm calculus within the lower pole of the right kidney is noted. There are no ureteral calculi. There is no evidence for a bowel obstruction. Caliber and wall thickness of small and large bowel are normal. There is no lymphadenopathy. There is no ascites. No suspicious osseous lesions are noted. IMPRESSION: 1. No acute process within the abdomen or pelvis. 2. 3 mm right renal calculus. No ureteral calculi or hydronephrosis. 3. No change in a 2 cm mixed solid and cystic left renal lesion since CT of March 09, 2019. This favors a renal cell carcinoma. ACT 112: Negative or not required by law. Electronically signed by: Johan Jennings M.D. 01/03/2020 4:32 PM ECG Data Attestation: I personally reviewed and interpreted this ECG as follows: Indication: + other (hallucinations) Rate (beats per minute): 75 Rhythm: + normal sinus ECG [place]: + Normal ECG ST segments: no ST depression and no ST elevation Comparison ECG Date: from (02/2019) Change: the following changes noted (T wave inversion no longer evident in lateral leads, PAC no longer present) Blood Pressure Blood Pressure Findings: Elevated blood pressure Blood Pressure Disposition: elevated BP felt to be situational Head Trauma GCS Score: 15 MDM Narrative This 74-year-old female patient presents the emergency department today due to UTI symptoms including dysuria and pressure. She is also experiencing floaters in her vision and hallucinations. The patient does have an underlying history of dementia. I suspect the hallucinations may be related to delirium secondary to UTI and underlying dementia. Patient is also experiencing edema which is a new symptom. Unclear to the etiology, but suspect possible dependent edema. La boratory evaluation relatively benign. Imaging without acute abnormality. Work-up here consistent with urinary tract infection. Given the hallucinations, the patient's family is uncomfortable managing her symptoms and infection at home and are requesting inpatient evaluation. I do feel that this is reasonable given the history and symptoms. The patient will be further evaluated by the hospitalist for inpatient care. Please see hospitalist dictation regarding ongoing management care of this patient. The chart was completed utilizing [employer]igh[employer] voice recognition software. Grammatical errors, random word insertions, pronoun errors, and incomplete sentences are an occasional consequence of this system due to software limitations, ambient noise, and hardware issues. Any formal questions or concerns about the content, text, or information contained within the body of this dictation should be directly addressed to the provider for clarification. Impression & Plan UTI (urinary tract infection), uncomplicated, Dysuria, Hallucinations, Bilateral leg edema Discharge Plan Visit Data *Final* Discharge Date/Time: 01/03/20 18:24 Chief Complaint: Urinary Symptoms Stated Complaint: POSSIBLE UTI, HALLUCINATIONS, SWOLLEN FEET ED Provider: Jitendra Rojas ED Midlevel Provider: Alina Zamora Discharge Problem: UTI (urinary tract infection), uncomplicated, Dysuria, Hallucinations, Bilateral leg edema Patient Disposition: Admitted As Inpatient Discharge Instructions Interventions: ED Discharge Assessment Last Done: 01/03/20 18:24
[2020-01-03 15:08] LABS: Basophils # (auto) 0.01 K/uL (0-0.2); Basophils % (auto) 0.2 %; Eosinophils # (auto) 0.05 K/uL (0-0.5); Eosinophils % (auto) 0.9 %; Hematocrit (blood only) 41.3 % (37-47); Hemoglobin 13.5 g/dL (12.0-16.0); Lymphocytes # (auto) 1.13 K/uL (1.2-3.4); Lymphocytes % (auto) 21.1 %; Mean Corpuscular Hemoglobin 27.8 pg (25-34); Mean Corpuscular Hgb Conc 32.7 g/dL (32-36); Mean Corpuscular Volume 85.2 fL (80-100); Mean Platelet Volume 9.8 fL (7.4-10.4); Monocytes # (auto) 0.56 K/uL (0.11-0.59); Monocytes % (auto) 10.5 %; Neutrophils % (auto) 67.3 %; Platelet Count 252 K/uL (130-400); RDW Standard Deviation 44.2 fL (36.4-46.3); Red Blood Count 4.85 M/uL (4.2-5.4); White Blood Count 5.35 K/uL (4.8-10.8)
[2020-01-03 15:10] LABS: Appearance Urine Slightly Cloudy (Clear); Bilirubin Urine Negative (Negative); Blood Urine Trace (Negative); Color Urine Yellow; Glucose Urine UA Negative (Negative); Ketones Urine Negative (Negative); Leukocyte Esterase Urine 3+ (Negative); Nitrite Urine Negative (Negative); Protein Urine Negative (Negative); Urobilinogen Urine Negative (Negative); pH Urine 7.5 (4.5-7.5)
[2020-01-03 15:20] LABS: Alanine Aminotransferase 24 U/L (12-78); Albumin Level 3.7 gm/dl (3.4-5.0); Aspartate Aminotransferase 14 U/L (15-37); BUN Creatinine Ratio 16.3 (10-20); Blood Urea Nitrogen 11 mg/dl (7-18); Calcium 9.2 mg/dl (8.5-10.1); Carbon Dioxide 29 mmol/L (21-32); Chloride 105 mmol/L (98-107); Est GFR (African American) 99.9; Est GFR (Non-African American) 86.2; Glucose 107 mg/dl (70-99); Lipase 134 U/L (73-393); Magnesium 2.1 mg/dl (1.8-2.4); Potassium 3.8 mmol/L (3.5-5.1); Sodium 140 mmol/L (136-145)
[2020-01-03 15:21] LABS: Partial Thromboplastin Ratio 0.9; Partial Thromboplastin Time 26.2 Seconds (21.0-31.0); Prothrombin Time 10.3 Seconds (9.0-12.0)
[2020-01-03] MEDS ORDERED: LORazepam 1 MG/2 ML VIAL IV STA (15:24)
--- NOTE | 2020-01-03 15:27 | XRay Report ---
XR chest 1V portable HISTORY: 74 years-old Female edema acute shortness of breath COMPARISON: Chest CT 05/14/2019 TECHNIQUE: Portable AP view of the chest FINDINGS: Cardiac silhouette is mildly enlarged. The patient is rotated. No pneumothorax, large pleural effusio n or overt pulmonary edema. Mild bibasilar opacities suggest probable atelectasis. Degenerative russell es of the shoulders and spine. IMPRESSION: 1. Cardiomegaly without overt pulmonary edema. 2. Mild bibasilar densities suggest probable atelectasis. Pneumonitis considered less likely. ACT 112: Negative or not required by law. The above report was generated using voice recognition software. It may contain grammatical, syntax o r spelling errors. Electronically signed by: Margarito Golden M.D. 01/03/2020 3:25 PM
[2020-01-03 15:31] LABS: Albumin Globulin Ratio 0.9 (0.9-2); Alkaline Phosphatase 96 U/L (45-117); Bilirubin,Total 0.4 mg/dl (0.2-1); Globulin 4.1 gm/dl (2.5-4.0); NT Pro B Type Natriuretic Pept 34 pg/ml (0-900); Total Protein 7.8 gm/dl (6.4-8.2); Troponin I < 0.015 ng/ml (0-0.045)
[2020-01-03 15:34] LABS: Bacteria Urine 1+ (Negative); RBC Urine 0-4 /hpf (0-4); WBC Urine 0-5 /hpf (0-5)
[2020-01-03] MEDS ORDERED: cefTRIAXone SODIUM 1,000 MG/50 ML BAG IV STA (15:43)
--- NOTE | 2020-01-03 16:04 | Electrocardiogram Report ---
Test Reason : Blood Pressure : / mmHG Vent. Rate : 075 BPM Atrial Rate : 075 BPM P-R Int : 162 ms QRS Dur : 074 ms QT Int : 410 ms P-R-T Axes : 048 044 049 degrees QTc Int : 457 ms Poor data quality, interpretation may be adversely affected Normal sinus rhythm Nonspecific ST abnormality Abnormal ECG When compared with ECG of 09-MAR-2019 19:11, Premature atrial complexes are no longer Present T wave inversion no longer evident in Lateral leads Confirmed by Jitendra Seals ([id number]) on 01/03/2020 4:04:09 PM Referred By: REFERRED SELF Confirmed By:Jitendra Seals
[2020-01-03] MEDS ORDERED: IOVERSOL 100ml IV PRN (16:12)
--- NOTE | 2020-01-03 16:16 | CT Scan Report ---
CT OF THE HEAD WITHOUT CONTRAST CLINICAL HISTORY: hallucinations COMPARISON STUDY: No previous studies for comparison. TECHNIQUE: Helical axial images of the head were obtained without IV contrast. Automated exposure con trol was utilized for the study. A dose lowering technique was utilized adhering to the principles o f ALARA. FINDINGS: No acute intracranial hemorrhage, midline shift or mass effect is present. Jugular system i s unremarkable. The basilar cisterns are patent. There are no extra-axial collections. Note is made o f mild atrophy. There are no findings to suggest acute dural sinus thrombosis or acute territorial in farct. No calvarial fracture is present. Left sphenoid sinus is opacified. Mastoid air cells are indira r. IMPRESSION: 1. No acute intracranial findings. 2. Opacified left sphenoid sinus. ACT 112: Negative or not required by law. Electronically signed by: Johan Jennings M.D. 01/03/2020 4:14 PM
--- NOTE | 2020-01-03 16:34 | CT Scan Report ---
CT OF THE ABDOMEN AND PELVIS WITH CONTRAST CLINICAL HISTORY: flank pain, dysuria COMPARISON STUDY: CT of the abdomen and pelvis March 09, 2019. Renal ultrasound May 14, 2019. MR I of the abdomen September 24, 2019. TECHNIQUE: Following IV administration of 94 mL of Optiray-320, axial images of the abdomen and pelvi s were obtained from the lung bases to the proximal femurs. Images were reviewed in the axial, sagitt al, and coronal planes. IV contrast was administered without complication. Automated exposure contro l was utilized for the study. A dose lowering technique was utilized adhering to the principles of A MADELIN. CT DOSE: 1116.21 mGy.cm FINDINGS: Lung bases are unremarkable. This exam is compromised by motion artifact. Several hepatic c ysts are again noted. No new hepatic lesions are present. No peripancreatic or pericholecystic infilt ration is present. There is no biliary or pancreatic ductal dilatation. The spleen, adrenal glands an d pancreas are unremarkable. There is no pancreatic ductal dilatation. A 2 cm mixed solid and cystic lesion within the midpole the left kidney is similar to CT of March 09, 2019. Additional bilateral jenn l lesions reflect cysts. There is no hydronephrosis. A 3 mm calculus within the lower pole of the rig ht kidney is noted. There are no ureteral calculi. There is no evidence for a bowel obstruction. Jonathan elaina and wall thickness of small and large bowel are normal. There is no lymphadenopathy. There is no ascites. No suspicious osseous lesions are noted. IMPRESSION: 1. No acute process within the abdomen or pelvis. 2. 3 mm right renal calculus. No ureteral calculi or hydronephrosis. 3. No change in a 2 cm mixed solid and cystic left renal lesion since CT of March 09, 2019. This favors a renal cell carcinoma. ACT 112: Negative or not required by law. Electronically signed by: Johan Jennings M.D. 01/03/2020 4:32 PM
--- NOTE | 2020-01-03 17:13 | History & Physical Report ---
Date of Service January 03, 2020 Assessment & Plan (1) UTI (urinary tract infection), uncomplicated: Ceftriaxone 1g IV daily pending clinical improvement Follow up urine culture. No CVA tenderness or CT changes to suggest pyelonephritis (2) Hallucinations: suspected delirium secondary to above infection with underlying dementia Discussed with her daughter this may get worse overnight in hospital since it is a change of environment in addition to lorazepam given in the ER. (3) Renal mass, left: Concerning for renal cell carcinoma. Already known to have mass as per family and she follows up with urology but appears prior plan was surveillance (please discuss with urology regarding follow up prior to discharge). (4) Bilateral leg edema: US venous Doppler to r/o DVT given acuity over the last month and likelihood of RCC as above. No history of heart failure and no JVD of CXR findings to suggest this or need for echo. No protein on UA LFTs WNL JEANA hose, encourage mobility and foot elevation while sitting. (5) Urge and stress incontinence: Continue flavoxate 100mg PO daily (6) Alzheimer's dementia: Continue Aricept 5mg HS At risk of delirium, use frequent reorientation strategies. Avoid further benzodiazepines. (7) GERD (gastroesophageal reflux disease): Switch omeprazole for pantoprazole as per hospital formulary (8) Hypertension: Continue ramipril 10mg PO daily (switch as per hospital formulary) + indapamide 2.5mg PO daily (9) Hyperlipidemia: Continue atorvastatin 20mg PO HS (10) Hypokalemia: Continue outpatient supplementation with KCl 20 meq PO daily (11) Constipation: Daughter reports no acute issues with this. She is prescribed PRN laxatives only. (12) DVT prophylaxis: Avoid SCDs given risk of falls Lovenox 40mg SQ daily PT/OT evals Code: full as discussed with her daughter although she recommended discussing with the patient's I was unable to contact him on numbers charted Admission and Anticipated Discharge Date Admission Date: 01/03/2020 History of Present Illness Chief Complaint: Hallucinations, dysuria Primary Care Provider: Ximena Jennings MD Sadaf Jo is a 74 year old female with dementia who presents to the ER due to dysuria and hallucinations that started yesterday. When seen the patient had been given lorazepam and was intermittently falling asleep during our conversation and was unable to answer any questions. Intermitt ently woke up and asked me how old I was or saying she wanted to go home but not orientated to time, place or person. History was taken from the ER notes/physician and her daughter at bedside. Tried calling on numbers provided after patient was admitted but no answer. Allergies Allergy/AdvReac Type Severity Reaction Status Date / Time dexamethasone Allergy Unknown hives Unverified 01/03/20 17:50 methylprednisolone Allergy Unknown hives Unverified 01/03/20 17:50 triamcinolone Allergy Unknown hives Unverified 01/03/20 17:50 Neosporin OINT Allergy Unknown Unknown Uncoded 01/03/20 17:50 Nickel Allergy Unknown Unknown Uncoded 01/03/20 17:50 Voltaren TBEC Allergy Unknown Unknown Uncoded 01/03/20 17:50 Home Medications Home Medications Medication Instructions Recorded Confirmed Type atorvastatin 20 mg PO HS 03/09/19 01/03/20 History celecoxib 200 mg PO DAILY 03/09/19 01/03/20 History omeprazole 20 mg PO DAILY 03/09/19 01/03/20 History pimecrolimus [Elidel] 1 applic TOPICAL DAILY PRN 03/09/19 01/03/20 History nitrofurantoin macrocrystal 50 mg 50 mg PO HS #90 cap 05/28/19 01/03/20 Rx capsule indapamide 1.25 mg tablet 1.25 mg PO DAILY #90 tab 07/08/19 01/03/20 Rx ramipril 10 mg capsule 10 mg PO DAILY #90 cap 07/08/19 01/03/20 Rx flavoxate 100 mg tablet 100 mg PO DAILY tab 07/25/19 01/03/20 History potassium chloride 20 mEq 20 meq PO DAILY 07/25/19 01/03/20 History tablet,extended release ascorbic acid (vitamin C) [Vitamin 500 mg PO DAILY 01/03/20 01/03/20 History C] docusate sodium 100 mg PO BID PRN 01/03/20 01/03/20 History donepezil [Aricept] 5 mg PO HS 01/03/20 01/03/20 History Past Med/Surg History Medical History Abdominal pain (Resolved) Chronic UTI (urinary tract infection) (Chronic) Constipation (Chronic) Dementia (Chronic) Diverticulosis (Chronic) Elevated alkaline phosphatase level (Chronic) GERD (gastroesophageal reflux disease) (Chronic) Hiatal hernia (Chronic) Hyperlipidemia (Chronic) Hypertension (Chronic) Hypokalemia (Acute) Hypokalemia (Resolved) Liver cyst (Chronic) Periumbilical hernia (Chronic) Proctocolitis (Resolved) Renal mass (Chronic) Renal mass, left (Chronic) Urinary incontinence (Chronic) Family History (Updated 10/16/19 @ 09:21 by Miranda Montes De Oca) Denies family history of Ovarian cancer Prostate cancer Myocardial infarction Breast cancer Colorectal cancer Social History Preferred Language: Tunisian Communication Ability: Effective Communication Ability Comment: 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 Beliefs That Will Affect Care: None marital status: Current Living Situation: Spouse current occupational status: retired Other Information That Helps Us Care for You: No Feels Safe at Home: Yes Smoking Status: Never smoker Second Hand Exposure: No ; Hx Alcohol Use: No Hx Substance Use: No Review of Systems Review of Systems: All systems reviewed & are unremarkable except as noted in HPI & below Constitutional: no fever and no chills Cardiovascular: + edema (bilateral R>L leg swelling for last month, more immobile during this time); no chest pain and no dyspnea Gastrointestinal: no abdominal pain, no belching, no bloating, no heartburn, no vomiting, no change in stools, no constipation, no diarrhea/loose stools, no blood in stools and no melena Genitourinary: + dysuria and + urinary incontinence; no urinary frequency, no hematuria and no flank pain Physical Exam Constitutional: well developed, well nourished, + altered mental status (frequently falling asleep), well groomed, comfortable and + lethargic; no acute distress Eyes: PERRL, conjunctivae normal, anicteric sclerae ENMT: external ear and nose normal, oropharynx normal Neck: normal visual inspection and trachea midline Respiratory: normal respiratory effort; no respiratory distress Auscultation: lungs clear to auscultation bilaterally; breath sounds present, no diminished lung sounds, no crackles, no rhonchi and no wheezes Cardiovascular: Rate/Rhythm: regular rate and regular rhythm Heart Sounds: no murmur Vessels: no JVD Extremities: normal capillary refill, + calf tenderness (b/l) and + pedal edema (3+ R>L) Gastrointestinal (Abdomen): Inspection/Auscultation: normal bowel sounds; abdomen not distended Percussion/Palpation: abdomen soft; abdomen nontender, no guarding and abdomen not rigid Musculoskeletal: no cyanosis or clubbing, extremities motor strength 5/5 Skin: no rashes, warm and dry Neurologic: moves all extremities, awake and + confused; no focal motor deficits Speech / Cognition: normal speech Motor/Sensory: no tremor and no pronator drift Cranial Nerves: PERRL Psychiatric: Orientation: alert (but falling asleep intermittenly); + not oriented to person, + not oriented to place and + not oriented to time Eye Contact: + poor eye contact Motor Behavior: no psychomotor agitation Affect: + flat affect Results & Data Results & Data ([facility]) Vital Signs (Past 12 Hours) Vital Signs Temp Pulse Resp BP Pulse Ox 01/03/20 16:35 70 16 168/48 H 92 01/03/20 16:33 16 01/03/20 16:19 77 01/03/20 15:35 78 01/03/20 15:14 88 21 100 01/03/20 15:01 87 20 173/125 H 100 01/03/20 14:22 36.6 C 73 16 145/[address] OF THE HEAD WITHOUT CONTRAST IMPRESSION: 1. No acute intracranial findings. 2. Opacified left sphenoid sinus. XR chest 1V portable IMPRESSION: 1. Cardiomegaly without overt pulmonary edema. 2. Mild bibasilar densities suggest probable atelectasis. Pneumonitis considered less likely. CT OF THE ABDOMEN AND PELVIS WITH CONTRAST IMPRESSION: 1. No acute process within the abdomen or pelvis. 2. 3 mm right renal calculus. No ureteral calculi or hydronephrosis. 3. No change in a 2 cm mixed solid and cystic left renal lesion since CT of March 09, 2019. This favors a renal cell carcinoma. ECG Indication: altered mental status Rate (beats per minute): 75 Rhythm: normal sinus Findings: no acute ischemic change Comparison ECG Date: from (03/09/2019) Change: the following changes noted (No TWI in lateral leads, no PACs) Code Status & VTE Plan Code Status Full - as discussed with daughter but she notes this would be better discussed with her , although I was unable to reach him today by phone VTE Prophylaxis Plan VTE Prophylaxis will be ordered: Yes Reason for no VTE mechanical prophylaxis: Contraindicated (Falls risk, delirium) PG Care Time/CCT Total # of Minutes Spent Total Time Spent with Patient: Total time spent is greater than 50% in coordination of care (as documented) at patient's floor/unit and/or counseling patient: Coding Level of Care Code 60069 Initial Inpt Care Lvl 2 Diagnoses UTI (urinary tract infection), uncomplicated N39.0 Hallucinations R44.3 Renal mass, left N28.89 Bilateral leg edema R60.0 Urge and stress incontinence N39.46 Alzheimer's dementia G30.9; F02.80 Alzheimer's disease onset: unspecified onset Dementia behavioral disturbance: without behavioral disturbance GERD (gastroesophageal reflux disease) K21.9 Hypertension I10 Hyperlipidemia E78.5 Hypokalemia E87.6 Constipation K59.00 DVT prophylaxis Z29.9 (1) Alzheimer's dementia Alzheimer's disease onset: unspecified onset Dementia behavioral disturbance: without behavioral disturbance Qualified Code(s): G30.9 - Alzheimer's disease, unspecified; F02.80 - Dementia in other diseases classified elsewhere without behavioral disturbance
--- NOTE | 2020-01-03 18:42 | Ultrasound Report ---
BILATERAL LOWER EXTREMITY VENOUS DOPPLER CLINICAL HISTORY: ?DVT COMPARISON STUDY: No previous studies for comparison. TECHNIQUE: Sonography of the deep venous system of the bilateral lower extremities was performed. Co mpression and augmentation were evaluated. FINDINGS: The bilateral common femoral, superficial femoral and popliteal veins were compressible. A ugmentation was normal. Flow was shown within the deep calf vessels. Note is made of a 4 x 4 by 1 cm suspected right popliteal cyst. There is subcutaneous edema of the bilateral lower extremities. IMPRESSION: 1. No evidence of deep venous thrombus within the bilateral lower extremities. 2. 4 x 4 x 1 cm suspected right popliteal cyst. ACT 112: Negative or not required by law. Electronically signed by: Johan Jennings M.D. 01/03/2020 6:40 PM
[2020-01-03] MEDS ORDERED: POLYETHYLENE (MIRALAX) 17 GM PACK PO PRN (19:02)
[2020-01-03] MEDS ORDERED: ONDANSETRON INJ 2 MG/ML 2 ML VIAL IV PRN (19:02)
[2020-01-03] MEDS ORDERED: DOCUSATE SODIUM 100 MG CAP PO PRN (19:54)
[2020-01-03] MEDS ORDERED: HydrALAZINE HCL 20 MG/ML VIAL IV PRN (19:56)
[2020-01-03] MEDS ORDERED: DONEPEZIL HCL 5 MG TAB PO SCH (21:00)
[2020-01-03] MEDS ORDERED: ATORVASTATIN 20 MG TAB PO SCH (21:00)
[2020-01-04] MEDS ORDERED: ENALAPRIL MALEATE 10 MG TAB PO SCH (09:00)
[2020-01-04] MEDS ORDERED: CeleBREX 200 MG CAP PO SCH (09:00)
[2020-01-04] MEDS ORDERED: INDAPAMIDE 1.25 MG TAB PO SCH (09:00)
[2020-01-04] MEDS ORDERED: ENOXAPARIN INJ 40 MG/0.4 ML SYR SQ SCH (09:00)
[2020-01-04] MEDS ORDERED: POTASSIUM CHLORIDE 20 MEQ TABCR PO SCH (09:00)
[2020-01-04] MEDS ORDERED: PANTOprazole 40 MG TAB PO SCH (09:00)
[2020-01-04] MEDS ORDERED: FLAVOXATE HCL 100 MG PO SCH (09:00)
[2020-01-04] MEDS ORDERED: ASCORBIC ACID 500 MG TAB PO SCH (09:00)
[2020-01-04] MEDS ORDERED: CEFDINIR 300 MG CAP PO STA (14:26)
--- NOTE | 2020-01-04 16:06 | Discharge Summary ---
Date of Service January 04, 2020 Admission HPI Per Admitting Provider Sadaf Jo is a 74 year old female with dementia who presents to the ER due to dysuria and hallucinations that started yesterday. When seen the patient had been given lorazepam and was intermittently falling asleep during our conversation and was unable to answer any questions. Intermittently woke up and asked me how old I was or saying she wanted to go home but not orientated to time, place or person. History was taken from the ER notes/physician and her daughter at bedside. Tried calling on numbers provided after patient was admitted but no answer. Principal Diagnosis delirium (metabolic encephalopathy) superimposed on dementia precipitated by UTI Discharge Exam gen awake and interactive, although somewhat disoriented, pleasant nad heent nc at mmm breathing unlabored no accessory muscles good effort skin no rashes no pallor or icterus no focal neuro deficits. Discharge Data Allergies Allergy/AdvReac Type Severity Reaction Status Date / Time dexamethasone Allergy Unknown hives Unverified 01/03/20 17:50 methylprednisolone Allergy Unknown hives Unverified 01/03/20 17:50 triamcinolone Allergy Unknown hives Unverified 01/03/20 17:50 Neosporin OINT Allergy Unknown Unknown Uncoded 01/03/20 17:50 Nickel Allergy Unknown Unknown Uncoded 01/03/20 17:50 Voltaren TBEC Allergy Unknown Unknown Uncoded 01/03/20 17:50 Consultations 01/03/20 17:11 ED Decision to Admit Stat 01/03/20 19:02 Consult Case Management - Discharge Planning Routine 01/04/20 14:27 Consult [facility] principal network architect Routine Ordered Studies 01/03/20 14:43 CT abd pelvis IV con only Stat CT head/brain wo con Stat 01/03/20 17:37 US venous doppler LE BI Routine Hospital Course (1) UTI (urinary tract infection), uncomplicated: presented w cystitis type symptoms and delirium/encephalopathy --> improved w ceftriaxone - growing gram negative rods right now. discussed with about current probable sensitive to 3rd gen ceph but final ID&S pending -- he is OK w her going home and we call if abx need to be changed (2) Hallucinations: delirium/encephalopathy superimposed on chronic dementia precipitated by UTI POA -discussed with - he is aware of her progression of dementia, is looking at watermelon harvesting supervisor placement but right now feels like he can take care of her at home "as is" -- so discharge to home (3) Renal mass, left: Concerning for renal cell carcinoma. Already known to have mass as per family and she follows up with urology but appears prior plan was surveillance - asked for urology to review films, f/u as outpt (4) Bilateral leg edema: very likely venous stasis no DVT (5) Urge and stress incontinence: Continue flavoxate 100mg PO daily (6) Alzheimer's dementia: Continue Aricept 5mg HS (7) GERD (gastroesophageal reflux disease): Switch omeprazole for pantoprazole as per hospital formulary (8) Hypertension: Continue ramipril 10mg PO daily (switch as per hospital formulary) + indapamide 2.5mg PO daily (9) Hyperlipidemia: Continue atorvastatin 20mg PO HS (10) Hypokalemia: Continue outpatient supplementation with KCl 20 meq PO daily (11) Constipation: (12) DVT prophylaxis: Lovenox 40mg SQ daily utilized during her stay home with outpt f/u --> did well enough w PT to go home, wants to take care of her at home for now - is planning on watermelon harvesting supervisor placement but feels he can still care for her in current status Total Time Total Time Spent Total Time Spent (In Minutes): <30 Discharge Plan Discharge Items Patient Disposition: Home - Self-Care Reason For Visit: URINARY SYMPTOMS, HALLUCINATIONS Discharge Diagnosis: delirium due to urinary tract infection (superimposed on baseline dementia) Activity: Resume your previous activity Non-emergency contact: Primary Care Provider Call non-emergency contact if: you have any medication questions and your symptoms worsen Follow-up/Referrals: Ximena Jennings MD [Primary Care Provider] - Diet: Regular Addtl Attending Provider Instructions: delirium -the acting more confused/hallucinating is a common thing that we'll see when anything infectious or metabolic "goes awry" in someone with dementia. in her case this time, with the burning when she urinated and findings showing bacteria on urine culture, it appears that the physiologic stress of a urinary tract infection was what caused her to get delirious. this is quite common. similarly, dehydration (even mild), viral infections, and changes in medication (particularly any meds that have cognitive side effects), and changes in en vironment can all set off a delirium (i mention this simply because once someone has gotten to where it appears she is with the dementia, it often doesn't take much to cause a delirium, and if you're able to look her over for those four things, you'll probably have a good read on what's going on ~90% of the time. *of note - urinary symptoms mean FAR more for diagnosing a urinary tract infection as the culprit than urine testing - in a 74 year old female a urine test is likely to look like infection even on a normal day as often as 10-20% of the time*) -typically treating the underlying cause (in this case the infection) does not improve the delirium as quickly as it improves the cause (ie the infection will likely get better far faster than the delirium); however, when people get back to their familiar environment, they do frequently do better than when they're still in the hospital urinary tract infection -since she did have urinary symptoms (fortunately now better) and did show in fection on urine culture, this was our culprit for this particular delirium -as we discussed, urine cultures come back in phases - right now we're at the phase where the lab is seeing that it is growing a type of bacteria (gram negative rods) - by later today or tomorrow they'll likely have it grown enough to be able to identify the particular bacteria (most commonly E Coli) and then by tomorrow or no later than monday they will have tested it against different antibiotics so that we know exactly what kills it and what doesn't. since she got so much better on the antibiotic in given in the ER, it is very likely that the bacteria will test out as being killed by that - and that class - of antibiotics. with that in mind it will be safe to send her home even before the culture is done. we'll treat with what appears highly likely to work, and then if the final report of the culture says otherwise, we'll call you to call in a different antibiotic Pending Studies at Discharge: No Stand-Alone Forms: [facility], Smoking Cessation Medications and DC Order Prescriptions: New cefdinir 300 mg capsule 300 mg PO BID 5 Days Qty: 10 RF: 0 Continued indapamide 1.25 mg tablet 1.25 mg PO DAILY Qty: 90 RF: 3 ramipril 10 mg capsule 10 mg PO DAILY Qty: 90 RF: 3 nitrofurantoin macrocrystal 50 mg capsule 50 mg PO HS Qty: 90 RF: 3 potassium chloride 20 mEq tablet extended release 20 meq PO DAILY RF: 0 flavoxate 100 mg tablet 100 mg PO DAILY RF: 0 celecoxib 200 mg capsule 200 mg PO DAILY RF: 0 atorvastatin 20 mg tablet 20 mg PO HS RF: 0 pimecrolimus [Elidel] 1 % cream 1 applic topical DAILY PRN (Reason: ..) RF: 0 omeprazole 20 mg capsule,delayed release(DR/EC) 20 mg PO DAILY RF: 0 ascorbic acid (vitamin C) [Vitamin C] 500 mg Tablet 500 mg PO DAILY RF: 0 docusate sodium 100 mg Capsule 100 mg PO BID PRN (Reason: Constipation) RF: 0 donepezil [Aricept] 5 mg tablet 5 mg PO HS RF: 0 Discharge Orders: Discharge Order (Routine); Ordered 01/04/20 Ordered By: Hay Garcia/Other Patient Handouts: UTIs Female, Understanding Urinary Tract Infections UTIs Admission Data Admit Date/Time: 01/03/20 17:18 Attending Provider: Hay Clark Admit Provider: Edil Torres Primary Care Provider: Ximena Jennings Other Providers: Edil Torres Other Interventions: Discharge Summary Assessment (RN) Last Done: 01/04/20 14:31 DC Date/Time DO NOT enter until pt leaves facility: 01/04/20 15:48 Coding Level of Care Code 82452 OBS Care - Discharge Diagnoses UTI (urinary tract infection), uncomplicated N39.0 Hallucinations R44.3 Renal mass, left N28.89 Bilateral leg edema R60.0 Urge and stress incontinence N39.46 Alzheimer's dementia G30.9; F02.80 Alzheimer's disease onset: unspecified onset Dementia behavioral disturbance: without behavioral disturbance GERD (gastroesophageal reflux disease) K21.9 Hypertension I10 Hyperlipidemia E78.5 Hypokalemia E87.6 Constipation K59.00 DVT prophylaxis Z29.9
== END 2020-01-04 15:48 | disposition home or self-care (01) ==
LOC: ED 14:19 → 3E 14:19 → SUATTDRO 17:18 → 3E 18:24

== ENCOUNTER 2020-08-26 17:50 | Observation (INO) ==
[2020-08-26] MEDS ORDERED: KETOROLAC TROMETHAMINE 15 MG/ML VIAL IV ONE (18:00)
--- NOTE | 2020-08-26 18:02 | Emergency Department Note ---
Impression & Plan Left flank pain, Strain of left iliopsoas muscle, Acute UTI ED Provider Note Provider: Marek Hope MD DATE OF SERVICE:08/26/2020 CHIEF COMPLAINT: Abdominal flank pain HISTORY OF PRESENT ILLNESS: Patient is a 75-year-old female history of a left renal mass approximately 2 cm with last imaging, chronic lower extremity edema, GERD, UTI, and dementia presenting today via ambulance with complaint of left flank pain. Patient herself is very poor historian due to her dementia and other than grabbing her left side complaints of pain other to get significant history from her. EMS reports several days of some left flank pain and to give information to contact the family. Contacted the patient's family member Elle who reports for the past 2 to 3 days the patient's had some intermittent left flank pain worsened this morning and now persistent today. No falls reported or trauma. No nausea or vomiting reported. Patient does have fairly severe dementia and does not take any of her home medications over the past 2 months. I have been working on this and her chronic lower extremity swelling with her primary doctor. Also reports the patient has a poor diet of mainly Pepsi and ch ips. Evidently patient lives at home with her and reports today worsening left flank pain. Elle reports that she gave her some Tylenol earlier but that did not significantly change the pain and thus came here for evaluation. EMS reports they gave her some morphine and Zofran prior to arrival with some mild effect. REVIEW OF SYSTEMS: Difficult to obtain a full 10 point system review. PAST MEDICAL HISTORY: As noted above MEDICATIONS: Reviewed patient medication list however family states she is not been taking any medications for the past 2 months SOCIAL HISTORY: Lives at home with PHYSICAL EXAM: GENERAL: alert on the stretcher holding her mid stomach to left flank appears uncomfortable Head: normocephalic and atraumatic EYES: No injection, discharge or icterus. NECK: Trachea midline. LUNGS: Airway patent. No retractions. Breath sounds clear HEART: Regular rate and rhythm. No chest wall tenderness ABDOMEN: Soft and non-tender, without guarding or rebound. BACK: No bilateral flank tenderness to palpation SKIN: Acyanotic, warm, dry, without rashes EXTREMITIES: Without significant deformity lower extremity with chronic lower extremity edema 1+ bilaterally with some slight saphenous stasis NEUROLOGICAL: No focal deficits. No aphasia. No facial droop or slurred speech. Patient is extremely poor historian and not oriented to where she is at or recent events. EK bpm sinus tachycardia. No PVC. No acute ST segment elevation is noted. There is some slight inferior and lateral ST flattening and borderline depression, compared to previous from January 02 of this year slightly more prominent inferior ST changes but lateral appears stable. There is some respiratory variation artifact on the EKG. CONTINUOUS CARDIAC MONITORING: was ordered and showed a heart rate of 98 bpm in normal sinus rhythm PDMP was checked without noted issue. Patient's laboratory studies and imaging reviewed. Differential includes Appendicitis, infections, cardiac, diverticulitis, UTI, obstruction, mesenteric ischemia, aortic pathology, inflammatory bowel disease, renal colic, PUD, pancreatitis, biliary pathology, hernia, volvulus, constipation, as well as other pathologies. IMPRESSION/MEDICAL DECISION MAKING: Patient presents holding her left epigastric to left flank. History of renal mass here that may be causing symptoms. No trauma reported per family member. Patient herself is difficult obtain any history from due to her dementia status. EKG, troponin, lipase, comprehensive metabolic panel labs were obtained as well as a CT of the abdomen pelvis. No fevers or infectious symptoms reported. Given some Toradol here as well as additional morphine for some discomfort in addition to the morphine and Zofran she received for EMS. Patient's family member Elle later arrives. Blood work shows no anemia and slight leukopenia. No significant electrolyte abnormalities signs of renal dysfunction. Lipase not elevated I doubt pancreatitis given this. No significant transaminitis and doubt acute hepatitis. No bilirubin elevation. Troponin is undetectable although there is some slight questionable inferior ST changes on the EKG compared to previous. Not having any chest pain from what I can appreciate in discussion with the patient. Symptoms do not seem consistent with ACS and would expect given the chronicity of her symptoms for troponin otherwise that there is truly related to cardiac disease. Do not feel at this time she requires further cardiac inpatient evaluation and doubt this is ACS. CT of the chest exclude PE as well as CT of the pelvis evaluate for intra-abdominal process were completed. Patient had some improvement of symptoms with some morphine here according to family member present and on reevaluation. CT reports per radiology without evidence of large central PE or bowel obstruction. Question some lung base atelectasis and small amount of air in the bladder. 2 cm mass in the left kidney is unchanged. There is some stranding around the iliopsoas muscle possible muscle strain although no intramuscular hematoma was noted on the imaging per radiology. The iliopsoas finding might explain some of the ayala ent's discomfort again it somewhat difficult to get a good history from her. Urine cath after CT scan was obtained. Urinalysis shows some trace leuk esterase but no signs of blood or nitrate. Microscopy did show some white blood cells but no bacteria. Some epithelial cells were noted. Microbiology review indicates has had multiple E. coli urine infections in the past and at this time pending urine culture results from today will treat with a course of antibiotic. Given dose ceftriaxone here and had plan to send home on cefdinir given prior sensitivities. Reassessed the patient just after CT discussed with family at bedside findings. Discussed risk benefits of further observation pain control here versus at home. Discussed possible concerns for iatrogenic exposure to other diseases particularly Covid here as well as possible delirium risk versus going home to a known environment and using oral pain medicine. In discussion with family they agreed and felt comfortable with this initially. State patient has a reserved room at [facility] but waiting for the pandemic to settle for them to accept new patients. On the final reassessment however the patient has become quite ag itated and was somewhat hyperventilating and anxious. Tried multiple calming techniques over period of time in conjunction with the daughter but minimally successful. Plan for discharge but now have concerns about ability get the patient home safely and the daughter has reasonable concerns about caring for her mother at home at this time. Given some IV Ativan. Discussed with case management possible placement options. We will asked the hospitalist evaluate for possible observation and work towards placement. Not having focal deficits and lower suspicion for acute stroke or intracranial bleed. Unfortunately likely worsening dementia and some delirium from discomfort of her pain, pain medicines, and the new environment here. DIAGNOSIS: Left flank and left upper quadrant pain, left iliopsoas muscle strain, acute UTI DISPOSITION: Being evaluated by the hospitalist Past Med/Surg History Medical History (Updated 08/26/20 @ 21:50 by Marek Hope M.D.) Alzheimer's dementia Chronic constipation Diverticulosis GERD (gastroesophageal reflux disease) Hiatal hernia Hyperlipidemia Hypertension Recurrent UTI (urinary tract infection) Renal mass, left Urge and stress incontinence Family History (Updated 10/16/19 @ 09:21 by Miranda Montes De Oca) Denies family history of Ovarian cancer Prostate cancer Myocardial infarction Breast cancer Colorectal cancer Social History Smoking Status: Unknown if ever smoked Second Hand Exposure: No; Hx Alcohol Use: No Hx Substance Use: No Preferred Language: Sinhala Communication Ability: Effective 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 Beliefs That Will Affect Care: None marital status: Current Living Situation: Spouse current occupational status: retired Feels Safe at Home: Yes Assistive Devices: Glasses and Walker Allergies Allergies Allergy/AdvReac Type Severity Reaction Status Date / Time dexamethasone Allergy Unknown hives Verified 08/26/20 20:34 methylprednisolone Allergy Unknown hives Verified 08/26/20 20:34 triamcinolone Allergy Unknown hives Verified 08/26/20 20:34 Neosporin OINT Allergy Unknown Unknown Uncoded 08/26/20 20:34 Nickel Allergy Unknown Unknown Uncoded 08/26/20 20:34 Voltaren TBEC Allergy Unknown Unknown Uncoded 08/26/20 20:34 Home Meds Previous Rx's Medication Instructions Recorded cefdinir 300 mg PO BID 7 Days #14 cap 08/26/20 oxycodone 5 mg PO Q8H PRN #12 tab 08/26/20 Results & Data (ED) Vital Signs Vital Signs - 24 hr 08/26/20 18:09 08/26/20 19:29 08/26/20 19:47 Temperature 36.9 C Temperature Source Oral Pulse Rate 94 H Pulse Rate [Apical] 95 H Pulse Rhythm [Apical] Regular Pulse Strength [Apical] Normal Respiratory Rate 22 20 Respiratory Effort / Characteristics Non-Labored Spontaneous Non-Labored Respiratory Depth Normal Normal Respiratory Pattern Regular Blood Pressure 183/96 H Blood Pressure [Right Arm] 161/101 H Blood Pressure Mean 125 Blood Pressure Mean [Right Arm] 121 Blood Pressure Position Lying Blood Pressure Position [Right Arm] Lying Pulse Oximetry 100 98 98 Oxygen Delivery Method Room Air Room Air Room Air Sepsis Recent Fever Within 48 Hours No Sepsis New/Unexplained Change in Mental Status N/A Sepsis Action Taken by Nursing No Action Required 08/26/20 21:12 Temperature Temperature Source Pulse Rate Pulse Rate [Apical] 105 H Pulse Rhythm [Apical] Regular Pulse Strength [Apical] Normal Respiratory Rate 24 Respiratory Effort / Characteristics Non-Labored Spontaneous Respiratory Depth Normal Respiratory Pattern Blood Pressure Blood Pressure [Right Arm] 173/98 H Blood Pressure Mean Blood Pressure Mean [Right Arm] 123 Blood Pressure Position Blood Pressure Position [Right Arm] Pulse Oximetry 98 Oxygen Delivery Method Room Air Sepsis Recent Fever Within 48 Hours Sepsis New/Unexplained Change in Mental Status Sepsis Action Taken by Nursing Laboratory Data Result diagrams: 08/26/20 19:08 08/26/20 19:08 Lab Results 08/26/20 08/26/20 08/26/20 Range/Units 19:08 19:08 21:10 WBC 4.43 L (4.8-10.8) K/uL RBC 4.35 (4.2-5.4) M/uL Hgb 12.3 (12.0-16.0) g/dL Hct 37.3 (37-47) % MCV 85.7 (80-100) fL MCH 28.3 (25-34) pg MCHC 33.0 (32-36) g/dL RDW Std Deviation 43.0 (36.4-46.3) fL RDW Coeff of Thomas 13.7 (11.5-14.5) % Plt Count 206 (130-400) K/uL MPV 9.6 (7.4-10.4) fL Immature Gran % (Auto) 0.0 % Neut % (Auto) 63.4 % Lymph % (Auto) 20.8 % Hubbard % (Auto) 14.9 % Eos % (Auto) 0.7 % Baso % (Auto) 0.2 % Neut # (Auto) 2.81 (1.4-6.5) K/uL Lymph # (Auto) 0.92 L (1.2-3.4) K/uL Hubbard # (Auto) 0.66 H (0.11-0.59) K/uL Eos # (Auto) 0.03 (0-0.5) K/uL Baso # (Auto) 0.01 (0-0.2) K/uL Immature Gran # (Auto) 0.00 (0.00-0.02) K/uL Sodium 142 (136-145) mmol/L Potassium 3.8 (3.5-5.1) mmol/L Chloride 109 H (98-107) mmol/L Carbon Dioxide 31 (21-32) mmol/L Anion Gap 2.0 L (3-11) BUN 15 (7-18) mg/dl Creatinine 0.76 (0.6-1.2) mg/dl Est Cr Clr Drug Dosing 65.9 ml/min Est GFR ( Amer) 88.9 Est GFR (Non-Af Amer) 76.7 BUN/Creatinine Ratio 19.6 (10-20) Glucose 109 H (70-99) mg/dl Calcium 8.8 (8.5-10.1) mg/dl Total Bilirubin 0.4 (0.2-1) mg/dl AST 8 L (15-37) U/L ALT 16 (12-78) U/L Alkaline Phosphatase 96 (45-117) U/L Troponin I < 0.015 (0-0.045) ng/ml Total Protein 6.7 (6.4-8.2) gm/dl Albumin 3.2 L (3.4-5.0) gm/dl Globulin 3.5 (2.5-4.0) gm/dl Albumin/Globulin Ratio 0.9 (0.9-2) Lipase 103 (73-393) U/L Urine Color Yellow Urine Appearance Clear (Clear) Urine pH 7.5 (4.5-7.5) Ur Specific [place] 1.019 (1.000-1.030) Urine Protein Negative (Negative) Urine Glucose (UA) Negative (Negative) Urine Ketones Negative (Negative) Urine Blood Negative (Negative) Urine Nitrite Negative (Negative) Urine Bilirubin Negative (Negative) Urine Urobilinogen Negative (Negative) Ur Leukocyte Esterase Trace H (Negative) Urine WBC (Auto) 10-30 H (0-5) /hpf Urine RBC (Auto) 0-4 (0-4) /hpf U Hyaline Cast (Auto) 10-30 H (0-5) /lpf U Epithel Cells (Auto) >30 H (0-5) /lpf Urine Bacteria (Auto) Negative (Negative) Ur Renal Epithelial Cell Not Reportable Calcium Oxalate Crystal Present A (None Prsent) Urine Mucus Present A (None Prsent) Administered Medications Discontinued Medications Ceftriaxone Sodium (Rocephin) 1,000 mg in 50 mls @ 100 mls/hr IV NOW STA Stop: 08/26/20 22:17 Last Admin: 08/26/20 21:55 Dose: 100 mls/hr Documented by: [id number] Lorazepam (Ativan) 0.5 mg in 1 mls @ 1 mls/min IV NOW STA Stop: 08/26/20 22:12 Last Admin: 08/26/20 22:22 Dose: 1 mls/min Documented by: [id number] Ioversol (Optiray 320 125ml) 120 ml IV ONCE ONE Stop: 08/26/20 20:41 Last Admin: 08/26/20 20:41 Dose: 120 ml Documented by: [id number] Ketorolac Tromethamine (Ketorolac Tromethamine 15 Mg/Ml Vial) 10 mg IV NOW ONE Stop: 08/26/20 18:01 Last Admin: 08/26/20 19:38 Dose: 10 mg Documented by: [id number] Morphine Sulfate (Morphine Sulfate 4 Mg/Ml 1 Ml Carp\Vial) 4 mg IV NOW STA Stop: 08/26/20 19:09 Last Admin: 08/26/20 19:39 Dose: 4 mg Documented by: [id number] Discharge Plan Visit Data Chief Complaint: Flank Pain Stated Complaint: L FLANK & AB PAIN ED Provider: Marek Hope Discharge Problem: Left flank pain, Strain of left iliopsoas muscle, Acute UTI Patient Disposition: Being Evaluated by Hospitalist Condition: Fair Prescriptions Prescriptions: New oxycodone 5 mg tablet 5 mg PO Q8H PRN (Reason: pain) Qty: 12 RF: 0 cefdinir 300 mg capsule 300 mg PO BID 7 Days Qty: 14 RF: 0 Referrals Referrals: Ximena Jennings MD [Primary Care Provider] - Discharge Problem: Strain of left iliopsoas muscle Qualifiers: Encounter type: initial encounter Qualified Code(s): S76.912A - Strain of unspecified muscles, fascia and tendons at thigh level, left thigh, initial encounter
[2020-08-26] MEDS ORDERED: MoRPHine SULFATE 4 MG/ML 1 ML CARP\\VIAL IV STA (19:08)
[2020-08-26 19:20] LABS: Basophils # (auto) 0.01 K/uL (0-0.2); Basophils % (auto) 0.2 %; Eosinophils # (auto) 0.03 K/uL (0-0.5); Eosinophils % (auto) 0.7 %; Hematocrit (blood only) 37.3 % (37-47); Hemoglobin 12.3 g/dL (12.0-16.0); Lymphocytes # (auto) 0.92 K/uL (1.2-3.4); Lymphocytes % (auto) 20.8 %; Mean Corpuscular Hemoglobin 28.3 pg (25-34); Mean Corpuscular Volume 85.7 fL (80-100); Mean Platelet Volume 9.6 fL (7.4-10.4); Monocytes # (auto) 0.66 K/uL (0.11-0.59); Monocytes % (auto) 14.9 %; Neutrophils # (auto) 2.81 K/uL (1.4-6.5); Neutrophils % (auto) 63.4 %; Platelet Count 206 K/uL (130-400); RDW Coefficient of Variation 13.7 % (11.5-14.5); Red Blood Count 4.35 M/uL (4.2-5.4); White Blood Count 4.43 K/uL (4.8-10.8)
[2020-08-26 19:37] LABS: Alanine Aminotransferase 16 U/L (12-78); Albumin Level 3.2 gm/dl (3.4-5.0); Aspartate Aminotransferase 8 U/L (15-37); BUN Creatinine Ratio 19.6 (10-20); Blood Urea Nitrogen 15 mg/dl (7-18); Calcium 8.8 mg/dl (8.5-10.1); Carbon Dioxide 31 mmol/L (21-32); Chloride 109 mmol/L (98-107); Creatinine Clr Calc Pharmacy 65.9 ml/min; Est GFR (African American) 88.9; Est GFR (Non-African American) 76.7; Glucose 109 mg/dl (70-99); Lipase 103 U/L (73-393); Potassium 3.8 mmol/L (3.5-5.1); Sodium 142 mmol/L (136-145)
[2020-08-26 19:43] LABS: Albumin Globulin Ratio 0.9 (0.9-2); Alkaline Phosphatase 96 U/L (45-117); Bilirubin,Total 0.4 mg/dl (0.2-1); Globulin 3.5 gm/dl (2.5-4.0); Total Protein 6.7 gm/dl (6.4-8.2); Troponin I < 0.015 ng/ml (0-0.045)
[2020-08-26] MEDS ORDERED: OPTIRAY 320 125ml IV ONE (20:40)
--- NOTE | 2020-08-26 21:09 | CT Scan Report ---
CT angio chest PE protocol; CT abdomen and pelvis with IV contrast only. CT DOSE: 1347.92 mGy.cm HISTORY: 75 years-old Female with PE, flank pain. Acute shortness of breath with bilateral flank pa in TECHNIQUE: Multiple CTA images of the chest were obtained after the intravenous administration of 120 ml Optiray 320. Coronal and sagittal MIPS were obtained from the axial data set and were submitted for review. All measurements were obtained according to NASCET criteria. Additionally, CT abdomen an d pelvis with IV contrast only was obtained. A dose lowering technique was utilized adhering to the p rinciples of NIK. COMPARISON: CT abdomen pelvis 01/03/2020, chest CT 05/14/2019. FINDINGS: CTA: Heart is normal in size. Moderate coronary artery calcifications. No pericardial effusion. No thoraci c aortic aneurysm or dissection. Patency of the imaged great vessels. Respiratory motion artifact hernandez its the study. To the segmental and subsegmental branches of the pulmonary artery are not well evalua pauline secondary to respiratory motion artifact. No filling defects are identified to suggest thromboemb olic disease. CT CHEST: Subcentimeter tiny left thyroid nodule. No adenopathy. Limited exam secondary to upper extremity posi tioning. No pneumothorax, pleural effusion or overt pulmonary edema. Mild subpleural linear consolida tive and groundglass opacities of the right lung base. There are no suspicious pulmonary nodules or m asses. 8 mm fissural nodule of the right middle lobe is unchanged suggestive of a benign lymph node. Central airways are patent. Unremarkable soft tissues. Degenerative changes of the spine and shoulder s. Demineralized appearance of the bones. CT ABDOMEN/PELVIS: Mild asymmetric right lung base opacities. Limited exam secondary to respiratory motion and upper ext remity positioning. No pneumatosis or pneumoperitoneum. Spleen, adrenal glands, and mildly atrophic p ancreas appear unremarkable. Scattered hepatic cysts are redemonstrated. Mildly distended gallbladder . No cholelithiasis. Next cystic and solid 2.0 x 1.4 cm lesion of the anterior interpolar left kidney is unchanged. Bilate ral renal cysts. 4 mm nonobstructing calculus of the inferior pole right kidney. No ureteral calculi or obstructive uropathy. Air is noted within the nondependent urinary bladder. Hysterectomy. No adnex al mass lesion. Calcified plaque of the abdominal aorta without aneurysm. No adenopathy. Small hiatal hernia. No bowel obstruction or bowel wall thickening. Colonic diverticulosis. No ascite s or mesenteric inflammation. No CT evidence of acute appendicitis. Tiny fat filled periumbilical her rani. Mild nonspecific stranding of the left iliopsoas muscle. The left psoas muscle is asymmetrically larger than the right which is unchanged. Atrophy of the bilateral gluteal musculature, left greater than right. No acute fracture identified. Demineralized appearance of the bones. IMPRESSION: 1. Mild asymmetric right lung base opacities favor atelectasis. A mild pneumonitis could appear simil ayanna. 2. Limited exam as above. No evidence of common or emboli. 3. No bowel obstruction or bowel wall thickening. 4. Air within the nondependent bladder, likely secondary to recent instrumentation. Correlate with ur inalysis. 5. Colonic diverticulosis. 6. Probable renal cell carcinoma of the left kidney measuring 2.0 cm is unchanged. 7. Subtle nonspecific stranding surrounds the iliopsoas psoas muscle. This may reflect a muscle strai n without definite intramuscular hematoma identified. 8. Additional findings as above. ACT 112: Negative or not required by law. The above report was generated using voice recognition software. It may contain grammatical, syntax o r spelling errors. Electronically signed by: Margarito Golden M.D. 08/26/2020 9:08 PM
[2020-08-26] MEDS ORDERED: oxyCODONE IR HOME PACK PO ONE (21:21)
[2020-08-26 21:24] LABS: Appearance Urine Clear (Clear); Bacteria Urine Automated Negative (Negative); Bilirubin Urine Negative (Negative); Blood Urine Negative (Negative); Color Urine Yellow; Epithelial Cell Urine Auto >30 /lpf (0-5); Glucose Urine UA Negative (Negative); Ketones Urine Negative (Negative); Leukocyte Esterase Urine Trace (Negative); Nitrite Urine Negative (Negative); Protein Urine Negative (Negative); RBC Urine Automated 0-4 /hpf (0-4); Specific Gravity Urine 1.019 (1.000-1.030); Urobilinogen Urine Negative (Negative); pH Urine 7.5 (4.5-7.5)
[2020-08-26 21:47] LABS: Calcium Oxalate Crystals Urine Present (None Prsent); Mucus Urine Present (None Prsent)
[2020-08-26] MEDS ORDERED: cefTRIAXone SODIUM 1,000 MG/50 ML BAG IV STA (21:48)
[2020-08-26] MEDS ORDERED: LORazepam 0.5 MG/1 ML VIAL IV STA (22:11)
--- NOTE | 2020-08-26 23:42 | History & Physical Report ---
Date of Service August 26, 2020 Assessment & Plan (1) Strain of left iliopsoas muscle: Strain of left iliopsoas muscle noted on CT- Likely explanation for left side and flank pain. Patient unlikely to be able to participate in PT or OT assessment due to severe dementia. Present on Admission?: Yes (2) Left flank pain: As above Present on Admission?: Yes (3) Acute UTI: Follow urine culture and sensitivity. Empiric treatment with ceftriaxone 1 g IV daily Present on Admission?: Yes (4) Renal mass, left: Stable on CT. Family aware that this is likely a renal cell carcinoma and would not want any aggressive therapy done Present on Admission?: Yes (5) Alzheimer's dementia: Patient is noted to have progressive dementia. Family is unable to care for her at home. She is on the waiting list for [facility] where excepting patients again. Consult social staff worker. Present on Admission?: Yes History of Present Illness Chief Complaint: The patient was brought to the emergency department due to reports of 2-3 days of intermittent left flank pain, that worsened this morning. Primary Care Provider: Ximena Jennings MD The patient is a 75-year-old female with a past medical history including left renal mass, hiatal hernia, diverticulosis, hypertension, hyperlipidemia, GERD, urge and stress incontinence, recurrent UTI and SDAT. The patient is not able to contribute to her HPI or review of systems due to severe dementia, and her daughter who is present in room, acts as historian. The patient has had intermittent left flank pain over the past few days, which likely is attributable a left iliopsoas strain as noted on CT scan of abdomen the pelvis in the ED. Daughter reports that family has had the patient on a waiting list to get into [facility] home, and asked that we facilitate this process, as they are unable to take care of her at home due to her progressive dementia. Allergies Allergy/AdvReac Type Severity Reaction Status Date / Time dexamethasone Allergy Unknown hives Verified 08/26/20 20:34 methylprednisolone Allergy Unknown hives Verified 08/26/20 20:34 triamcinolone Allergy Unknown hives Verified 08/26/20 20:34 Neosporin OINT Allergy Unknown Unknown Uncoded 08/26/20 20:34 Nickel Allergy Unknown Unknown Uncoded 08/26/20 20:34 Voltaren TBEC Allergy Unknown Unknown Uncoded 08/26/20 20:34 Home Medications Medication Instructions Recorded Confirmed Type cefdinir 300 mg PO BID 7 Days #14 cap 08/26/20 Rx oxycodone 5 mg PO Q8H PRN #12 tab 08/26/20 Rx Past Med/Surg History Medical History (Updated 08/26/20 @ 21:50 by Marek Hope M.D.) Alzheimer's dementia Chronic constipation Diverticulosis GERD (gastroesophageal reflux disease) Hiatal hernia Hyperlipidemia Hypertension Recurrent UTI (urinary tract infection) Renal mass, left Urge and stress incontinence Family History (Updated 10/16/19 @ 09:21 by Miranda Montes De Oca) Denies family history of Ovarian cancer Prostate cancer Myocardial infarction Breast cancer Colorectal cancer Social History Smoking Status: Unknown if ever smoked Second Hand Exposure: No; Hx Alcohol Use: No Hx Substance Use: No Preferred Language: Greenlandic Communication Ability: Effective Acid Tester Required: No Beliefs That Will Affect Care: None marital status: Current Living Situation: Spouse current occupational status: retired Feels Safe at Home: Yes Assistive Devices: Glasses and Walker Review of Systems Review of Systems: Unobtainable due to mental health condition and Unobtainable due to cognitive status Physical Exam Physical Exam: The patient is unresponsive, normocephalic and atraumatic, lying in bed and in no acute distress. HEENT--PERRL, EOMI, mucous membranes and oropharynx dry. Neck--supple. No JVD. No bruits. Thyroid normal, trachea midline, no adenopathy. Heart--normal S1 and S2. No murmurs, rubs or gallops. Lungs--clear bilaterally, no respiratory distress, no accessory muscle use. Abdomen--normal bowel sounds and soft. Nontender. Nondistended, no hernias or masses, no organomegaly. Extremities--no cyanosis or clubbing. 1+ bilateral pretibial pitting edema. There are good distal pulses b/l. Dermatologic--dyshidrotic eczema right anterior tibial area greater than left Neurologic--cranial nerves II through XII grossly intact. Rheumatologic--normal range of motion. Psychiatric--sedated Results & Data Results & Data ([facility]) Vital Signs (Past 12 Hours) Vital Signs Temp Pulse Pulse Resp BP BP Pulse Ox 08/26/20 23:12 88 17 107/58 L 93 08/26/20 23:11 82 L 08/26/20 21:12 105 H 24 173/98 H 98 08/26/20 19:47 95 H 20 161/101 H 98 08/26/20 19:29 98 08/26/20 18:09 98.4 F 94 H 22 183/96 H 100 Laboratory Results Laboratory Results WBC 4.43 K/uL (4.8-10.8) L 08/26/20 19:08 RBC 4.35 M/uL (4.2-5.4) 08/26/20 19:08 Hgb 12.3 g/dL (12.0-16.0) 08/26/20 19:08 Hct 37.3 % (37-47) 08/26/20 19:08 MCV 85.7 fL (80-100) 08/26/20 19:08 MCH 28.3 pg (25-34) 08/26/20 19:08 MCHC 33.0 g/dL (32-36) 08/26/20 19:08 RDW Std Deviation 43.0 fL (36.4-46.3) 08/26/20 19:08 RDW Coeff of Thomas 13.7 % (11.5-14.5) 08/26/20 19:08 Plt Count 206 K/uL (130-400) 08/26/20 19:08 MPV 9.6 fL (7.4-10.4) 08/26/20 19:08 Immature Gran % (Auto) 0.0 % 08/26/20 19:08 Neut % (Auto) 63.4 % 08/26/20 19:08 Lymph % (Auto) 20.8 % 08/26/20 19:08 [place] % (Auto) 14.9 % 08/26/20 19:08 Eos % (Auto) 0.7 % 08/26/20 19:08 Baso % (Auto) 0.2 % 08/26/20 19:08 Neut # (Auto) 2.81 K/uL (1.4-6.5) 08/26/20 19:08 Lymph # (Auto) 0.92 K/uL (1.2-3.4) L 08/26/20 19:08 [place] # (Auto) 0.66 K/uL (0.11-0.59) H 08/26/20 19:08 Eos # (Auto) 0.03 K/uL (0-0.5) 08/26/20 19:08 Baso # (Auto) 0.01 K/uL (0-0.2) 08/26/20 19:08 Immature Gran # (Auto) 0.00 K/uL (0.00-0.02) 08/26/20 19:08 Sodium 142 mmol/L (136-145) 08/26/20 19:08 Potassium 3.8 mmol/L (3.5-5.1) 08/26/20 19:08 Chloride 109 mmol/L (98-107) H 08/26/20 19:08 Carbon Dioxide 31 mmol/L (21-32) 08/26/20 19:08 Anion Gap 2.0 (3-11) L 08/26/20 19:08 BUN 15 mg/dl (7-18) 08/26/20 19:08 Creatinine 0.76 mg/dl (0.6-1.2) 08/26/20 19:08 Est Cr Clr Drug Dosing 65.9 ml/min 08/26/20 19:08 Est GFR ( Amer) 88.9 08/26/20 19:08 Est GFR (Non-Af Amer) 76.7 08/26/20 19:08 BUN/Creatinine Ratio 19.6 (10-20) 08/26/20 19:08 Glucose 109 mg/dl (70-99) H 08/26/20 19:08 Calcium 8.8 mg/dl (8.5-10.1) 08/26/20 19:08 Total Bilirubin 0.4 mg/dl (0.2-1) 08/26/20 19:08 AST 8 U/L (15-37) L 08/26/20 19:08 ALT 16 U/L (12-78) 08/26/20 19:08 Alkaline Phosphatase 96 U/L (45-117) 08/26/20 19:08 Troponin I < 0.015 ng/ml (0-0.045) 08/26/20 19:08 Total Protein 6.7 gm/dl (6.4-8.2) 08/26/20 19:08 Albumin 3.2 gm/dl (3.4-5.0) L 08/26/20 19:08 Globulin 3.5 gm/dl (2.5-4.0) 08/26/20 19:08 Albumin/Globulin Ratio 0.9 (0.9-2) 08/26/20 19:08 Lipase 103 U/L (73-393) 08/26/20 19:08 Urine Color Yellow 08/26/20 21:10 Urine Appearance Clear (Clear) 08/26/20 21:10 Urine pH 7.5 (4.5-7.5) 08/26/20 21:10 Ur Specific [place] 1.019 (1.000-1.030) 08/26/20 21:10 Urine Protein Negative (Negative) 08/26/20 21:10 Urine Glucose (UA) Negative (Negative) 08/26/20 21:10 Urine Ketones Negative (Negative) 08/26/20 21:10 Urine Blood Negative (Negative) 08/26/20 21:10 Urine Nitrite Negative (Negative) 08/26/20 21:10 Urine Bilirubin Negative (Negative) 08/26/20 21:10 Urine Urobilinogen Negative (Negative) 08/26/20 21:10 Ur Leukocyte Esterase Trace (Negative) H 08/26/20 21:10 Urine WBC (Auto) 10-30 /hpf (0-5) H 08/26/20 21:10 Urine RBC (Auto) 0-4 /hpf (0-4) 08/26/20 21:10 U Hyaline Cast (Auto) 10-30 /lpf (0-5) H 08/26/20 21:10 U Epithel Cells (Auto) >30 /lpf (0-5) H 08/26/20 21:10 Urine Bacteria (Auto) Negative (Negative) 08/26/20 21:10 Ur Renal Epithelial Cell Not Reportable 08/26/20 21:10 Calcium Oxalate Crystal Present (None Prsent) A 08/26/20 21:10 Urine Mucus Present (None Prsent) A 08/26/20 21:10 SARS-CoV-2 Ag (Rapid) Negative (Negative) 08/26/20 22:47 Diagnostic Findings [facility], [phone] CT Scan Report Patient: SAMARA JARVIS RAdmit Date: 08/26/20MR#: [id number]: 1539 MICHAEL RDAcct ID:[id number]: Date: 1945[facility] Zip: [place] [id number]: 75Location: EDSex: FRoom/Bed:Att Phy:Diagnosis: L FLANK & AB PAINPri Phy: Ximena Jennnigs, MDService Date: 08/26/20Fa Phy:Interpreting Phy: Cornelius Whipple Phy: Ordering Phy: Marek Hope M.D. cc: ~ CT angio chest PE protocol; CT abdomen and pelvis with IV contrast only. CT DOSE: 1347.92 mGy.cm HISTORY: 75 years-old Female with PE, flank pain. Acute shortness of breath with bilateral flank pain TECHNIQUE: Multiple CTA images of the chest were obtained after the intravenous administration of 120 ml Optiray 320. Coronal and sagittal MIPS were obtained from the axial data set and were submitted for review. All measurements were obtained according to NASCET criteria. Additionally, CT abdomen and pelvis with IV contrast only was obtained. A dose lowering technique was utilized adhering to the principles of ALARA. COMPARISON: CT abdomen pelvis 01/03/2020, chest CT 05/14/2019. FINDINGS: CTA: Heart is normal in size. Moderate coronary artery calcifications. No pericardial effusion. No thoracic aortic aneurysm or dissection. Patency of the imaged great vessels. Respiratory motion artifact limits the study. To the segmental and subsegmental branches of the pulmonary artery are not well evaluated secondary to respiratory motion artifact. No filling defects are identified to suggest thromboembolic disease. CT CHEST: Subcentimeter tiny left thyroid nodule. No adenopathy. Limited exam secondary to upper extremity positioning. No pneumothorax, pleural effusion or overt pulmonary edema. Mild subpleural linear consolidative and groundglass opacities of the right lung base. There are no suspicious pulmonary nodules or masses. 8 mm fissural nodule of the right middle lobe is unchanged suggestive of a benign lymph node. Central airways are patent. Unremarkable soft tissues. Degenerative changes of the spine and shoulders. Demineralized appearance of the bones. CT ABDOMEN/PELVIS: Mild asymmetric right lung base opacities. Limited exam secondary to respiratory motion and upper extremity positioning. No pneumatosis or pneumoperitoneum. Spleen, adrenal glands, and mildly atrophic pancreas appear unremarkable. Scattered hepatic cysts are redemonstrated. Mildly distended gallbladder. No cholelithiasis. Next cystic and solid 2.0 x 1.4 cm lesion of the anterior interpolar left kidney is unchanged. Bilateral renal cysts. 4 mm nonobstructing calculus of the inferior pole right kidney. No ureteral calculi or obstructive uropathy. Air is noted within the nondependent urinary bladder. Hysterectomy. No adnexal mass lesion. Calcified plaque of the abdominal aorta without aneurysm. No adenopathy. Small hiatal hernia. No bowel obstruction or bowel wall thickening. Colonic diverticulosis. No ascites or mesenteric inflammation. No CT evidence of acute appendicitis. Tiny fat filled periumbilical hernia. Mild nonspecific stranding of the left iliopsoas muscle. The left psoas muscle is asymmetrically larger than the right which is unchanged. Atrophy of the bilateral gluteal musculature, left greater than right. No acute fracture identified. Demineralized appearance of the bones. IMPRESSION: 1. Mild asymmetric right lung base opacities favor atelectasis. A mild pneumonitis could appear similarly. 2. Limited exam as above. No evidence of common or emboli. 3. No bowel obstruction or bowel wall thickening. 4. Air within the nondependent bladder, likely secondary to recent instrumentation. Correlate with urinalysis. 5. Colonic diverticulosis. 6. Probable renal cell carcinoma of the left kidney measuring 2.0 cm is unchanged. 7. Subtle nonspecific stranding surrounds the iliopsoas psoas muscle. This may reflect a muscle strain without definite intramuscular hematoma identified. 8. Additional findings as above. ACT 112: Negative or not required by law. The above report was generated using voice recognition software. It may contain grammatical, syntax or spelling errors. Electronically signed by: Margarito Golden M.D. 08/26/2020 9:08 PM Dictated: 08/26/202051 Code Status & VTE Plan Code Status DNR/DNI VTE Prophylaxis Plan VTE Prophylaxis will be ordered: Yes PG Care Time/CCT Total # of Minutes Spent Total Time Spent with Patient: Total time spent is greater than 50% in coordination of care (as documented) at patient's floor/unit and/or counseling patient: Coding Level of Care Code 22180 OBS Care - Level 3 Diagnoses Strain of left iliopsoas muscle S76.912A Encounter type: initial encounter Left flank pain R10.9 Acute UTI N39.0 Renal mass, left N28.89 Alzheimer's dementia G30.9; F02.80 Alzheimer's disease onset: unspecified onset Dementia behavioral disturbance: without behavioral disturbance (1) Strain of left iliopsoas muscle Encounter type: initial encounter Qualified Code(s): S76.912A - Strain of unspecified muscles, fascia and tendons at thigh level, left thigh, initial encounter (2) Alzheimer's dementia Alzheimer's disease onset: unspecified onset Dementia behavioral disturbance: without behavioral disturbance Qualified Code(s): G30.9 - Alzheimer's disease, unspecified; F02.80 - Dementia in other diseases classified elsewhere without behavioral disturbance
[2020-08-27] MEDS ORDERED: ONDANSETRON INJ 2 MG/ML 2 ML VIAL IV PRN (02:26)
[2020-08-27] MEDS: LACTATED RINGER'S 1,000 ML IV SCH ×2 (03:40→15:29)
--- NOTE | 2020-08-27 08:17 | Electrocardiogram Report ---
Test Reason : Blood Pressure : / mmHG Vent. Rate : 104 BPM Atrial Rate : 104 BPM P-R Int : 150 ms QRS Dur : 082 ms QT Int : 358 ms P-R-T Axes : 054 066 034 degrees QTc Int : 470 ms Sinus tachycardia Diffuse Nonspecific ST abnormality Abnormal ECG When compared with ECG of 03-JAN-2020 15:51, Diffuse Nonspecific ST abnormality more pronounced Confirmed by Marbin Turcios ([id number]) on 08/27/2020 8:17:10 AM Referred By: REFERRED SELF Confirmed By:Marbin Turcios
[2020-08-27] MEDS: HEPARIN SOD 5,000 UNIT/0.5 ML VIAL SQ SCH ×2 (09:59→20:54)
--- NOTE | 2020-08-27 12:07 | Hospitalist Progress Note ---
Date of Service August 27, 2020 Assessment & Plan (1) Strain of left iliopsoas muscle: Strain of left iliopsoas muscle noted on CT- Likely explanation for left side and flank pain. Patient unlikely to be able to participate in PT or OT assessment due to severe dementia. (2) Left flank pain: As above (3) Acute UTI: Urine culture pending - will hold off on further abx for now unless patient becomes overtly symptomatic. No leukocytosis is or fevers (4) Renal mass, left: Stable on CT. Family aware that this is likely a renal cell carcinoma and would not want any aggressive therapy done (5) Alzheimer's dementia: Patient is noted to have progressive dementia. Family is unable to care for her at home. She is on the waiting list for [facility] where excepting patients again. Consult home health care social worker. Attempted to talk with patient's Rashaad who is her POA per past notes but he did not answer. I talked with per primary contact who is her daughter in law Elle. Per past outpatient notes Ms. Jo's goals were toward comfort as her Alzheimer's dementia has rapidly progressed. Elle confirmed this and that the family would like a more comfort care approach. She would like to reassess patient's care if she were to worsen however. For now we will avoid lab draws (I don't think at this point serial labs are necessary anyhow given her stability) but continue vital signs. Patient would also benefit from talking with palliative care after the holiday and creating a POLST form. Admission and Anticipated Discharge Date Admission Date: August 26, 2020 Results & Data Results & Data ([facility]) Vital Signs (Past 12 Hours) Vital Signs Temp Pulse Pulse Resp BP BP Pulse Ox 08/27/20 07:29 36.4 C L 86 18 137/79 95 08/27/20 01:30 36.4 C L 86 20 130/53 L 95 08/27/20 00:51 70 18 126/62 95 PG Care Time/CCT Total # of Minutes Spent Total Time Spent with Patient: Total time spent is greater than 50% in coordination of care (as documented) at patient's floor/unit and/or counseling patient: Coding Level of Care Code 53935 Subseq Hosp Care Lvl 2 Diagnoses Strain of left iliopsoas muscle S76.912A Encounter type: initial encounter Left flank pain R10.9 Acute UTI N39.0 Renal mass, left N28.89 Alzheimer's dementia G30.9; F02.80 Alzheimer's disease onset: unspecified onset Dementia behavioral disturbance: without behavioral disturbance (1) Strain of left iliopsoas muscle Encounter type: initial encounter Qualified Code(s): S76.912A - Strain of unspecified muscles, fascia and tendons at thigh level, left thigh, initial encounter (2) Alzheimer's dementia Alzheimer's disease onset: unspecified onset Dementia behavioral disturbance: without behavioral disturbance Qualified Code(s): G30.9 - Alzheimer's disease, unspecified; F02.80 - Dementia in other diseases classified elsewhere without behavioral disturbance
[2020-08-27] MEDS: HALOPERIDOL LACTATE 5 MG/ML 1 ML VIAL IM PRN (17:23)
[2020-08-27] MEDS ORDERED: cefTRIAXone SODIUM 1,000 MG in DEXTROSE 5% 50 ML IV SCH (20:00)
[2020-08-28] MEDS: LACTATED RINGER'S 1,000 ML IV SCH ×2 (03:41→15:39)
[2020-08-28] MEDS: HEPARIN SOD 5,000 UNIT/0.5 ML VIAL SQ SCH ×2 (09:52→20:12)
--- NOTE | 2020-08-28 11:28 | Hospitalist Progress Note ---
Date of Service August 28, 2020 Assessment & Plan (1) Strain of left iliopsoas muscle: Strain of left iliopsoas muscle noted on CT- Likely explanation for left side and flank pain. Patient unlikely to be able to participate in PT or OT assessment due to severe dementia. (2) Left flank pain: As above (3) Acute UTI: Urine culture with less than 1000 colonies - dc'd abx On her CT there was gas in the bladder but this could be secondary to catheterization in order to obtain urine sample. Unlikely to represent anaerobe infection as patient is afebrile, no leukocytosis on admission, and negative urine culture. Will continue to monitor for any acute changes (4) Renal mass, left: Stable on CT. Family aware that this is likely a renal cell carcinoma and would not want any aggressive therapy done (5) Alzheimer's dementia: Patient is noted to have progressive dementia. IM Haldol q3h prn for agitation - patient pulled out IVs and will avoid restarting Family is unable to care for her at home. She is on the waiting list for [facility] where excepting patients again. Consult social work manager. Attempted to talk with patient's Rashaad on 08/27 and 08/28 who is her POA per past notes but he did not answer either time (although per CM notes Elle is the POA). I talked with per primary contact who is her daughter in law Elle (listed as daughter in contact list). Per past outpatient notes Ms. Jo's goals were toward comfort as her Alzheimer's dementia has rapidly progressed. Elle confirmed this and that the family would like a more comfort care approach. She would like to reassess patient's care if she were to worsen however. For now we will avoid lab draws (I don't think at this point serial labs are necessary anyhow given her stability) but continue vital signs. Patient would also benefit from a palliative care consult after the holiday and creating a POLST form. Admission and Anticipated Discharge Date Admission Date: August 26, 2020 Subjective Sleeping, awakens to verbal stimulus. Answers "no" when asked if in pain but otherwise cannot participate in ROS Physical Exam Physical Exam: General: no distress Eyes: normal inspection, PERLL Respiratory: chest non tender, clear to auscultation, normal breath sounds, no respiratory distress, no accessory muscle use Cardiac: regular rate and rhythm, no rub or gallop, no murmur, no edema, no jvd GI/: active bowel sounds, no abd pain or tenderness, soft, non distended Extremities: normal range of motion, normal strength, non tender Neuro/Psych: alert and oriented to person, normal mood and affect Skin: normal color, dry Results & Data Results & Data ([facility]) Vital Signs (Past 12 Hours) Vital Signs Temp Pulse Resp BP Pulse Ox 08/28/20 07:36 36.8 C 96 H 18 139/75 98 PG Care Time/CCT Total # of Minutes Spent Total Time Spent with Patient: Total time spent is greater than 50% in coordination of care (as documented) at patient's floor/unit and/or counseling patient: Coding Level of Care Code 96725 Subseq Hosp Care Lvl 2 Diagnoses Strain of left iliopsoas muscle S76.912A Encounter type: initial encounter Left flank pain R10.9 Acute UTI N39.0 Renal mass, left N28.89 Alzheimer's dementia G30.9; F02.80 Alzheimer's disease onset: unspecified onset Dementia behavioral disturbance: without behavioral disturbance (1) Strain of left iliopsoas muscle Encounter type: initial encounter Qualified Code(s): S76.912A - Strain of unspecified muscles, fascia and tendons at thigh level, left thigh, initial encounter (2) Alzheimer's dementia Alzheimer's disease onset: unspecified onset Dementia behavioral disturbance: without behavioral disturbance Qualified Code(s): G30.9 - Alzheimer's disease, unspecified; F02.80 - Dementia in other diseases classified elsewhere without behavioral disturbance
--- NOTE | 2020-08-28 13:33 | Ultrasound Report ---
US venous doppler LE RT CLINICAL HISTORY: Right lower extremity edema COMPARISON STUDY: 01/03/2020 FINDINGS: Real-time and color flow Doppler imaging were performed. Flow was seen within the femoral, popliteal and calf veins with no intraluminal thrombus demonstrated. The saphenous vein is patent. Th ere is a right popliteal cyst measuring 45 x 14 x 17 mm. IMPRESSION: No evidence of right lower extremity DVT. ACT 112: Negative or not required by law. Electronically signed by: Jey Gilbert M.D. 08/28/2020 1:32 PM
[2020-08-29] MEDS: LACTATED RINGER'S 1,000 ML IV SCH ×2 (03:24→15:30)
--- NOTE | 2020-08-29 09:34 | Hospitalist Progress Note ---
Date of Service August 29, 2020 Assessment & Plan (1) Strain of left iliopsoas muscle: * Strain of left iliopsoas muscle noted on CT- * Likely explanation for left side and flank pain. * Patient unlikely to be able to participate in PT or OT assessment due to severe dementia (2) Left flank pain: * As above (3) Acute UTI: * Urine culture with less than 1000 colonies - dc'd abx * On her CT there was gas in the bladder but this could be secondary to catheterization in order to obtain urine sample. Unlikely to represent anaerobe infection as patient is afebrile, no leukocytosis on admission, and negative urine culture. Will continue to monitor for any acute changes * Urine actually with >100k CFU but with garderella type species -- will treat with flagyl if patient agreeable to take for BV (4) Renal mass, left: * Stable on CT. * Family aware that this is likely a renal cell carcinoma and would not want any aggressive therapy done (5) Alzheimer's dementia: * Patient is noted to have progressive dementia. * IM Haldol q3h prn for agitation - patient pulled out IVs and will avoid restarting * Family is unable to care for her at home. * She is on the waiting list for [facility] where excepting patients again. * Consult social services director. * Will place on thiamine replacement if patient agreeable to take -- of note, d id take flagyl in juice/applesauce today so can take pills Added hydralazine for BP >180 systolic or >100 diastolic. Attempted to talk with patient's Rashaad on 08/27 and 08/28 who is her POA per past notes but he did not answer either time (although per CM notes Elle is the POA). I talked with per primary contact who is her daughter in law Elle (listed as daughter in contact list). Per past outpatient notes Ms. Jo's goals were toward comfort as her Alzheimer's dementia has rapidly progressed. Elle confirmed this and that the family would like a more comfort care approach. She would like to reassess patient's care if she were to worsen however. For now we will avoid lab draws (I don't think at this point serial labs are necessary anyhow given her stability) but continue vital signs. Patient would also benefit from a palliative care consult after the holiday and creating a POLST form. Will place consult at this time as patient likely to remain inpatient through weekend while awaiting placement. Admission and Anticipated Discharge Date Admission Date: August 26, 2020 Subjective Patient evaluated this afternoon. Not happy about continuing to be in the hospital and would like to see her . Discussed awaiting placement at this time as family not able to care for her at home any longer. Not having any pain at this time. Poor appetite, although had been NPO for several days. Even with diet, appetite poor. When asked if she would like anything specific to eat, she stated she doesn't want anything at this time. Just not hungry. No fever, chills, chest pain, shortness of breath, abdominal pain. Did have IV placed by IV team earlier this afternoon and discussed giving additional liter of fluids given lack of intake. Review of Systems Review of Systems: All systems reviewed & are unremarkable except as noted in HPI & below Physical Exam Physical Exam: General: no distress Eyes: normal inspection, PERLL Respiratory: chest non tender, clear to auscultation, normal breath sounds, no respiratory distress, no accessory muscle use Cardiac: regular rate and rhythm, no rub or gallop, no murmur, no edema, no jvd GI/: active bowel sounds, no abd pain or tenderness, soft, non distended Extremities: normal range of motion, normal strength, non tender Neuro/Psych: alert and oriented to person, normal mood and affect Skin: normal color, dry. ecchymosis to R forearm from previous infiltration. New IV L forearm Results & Data Results & Data ([facility]) Vital Signs (Past 12 Hours) Vital Signs Temp Pulse Resp Pulse Ox 08/28/20 23:21 36.9 C 110 H 14 95 PG Care Time/CCT Total # of Minutes Spent Total Time Spent with Patient: Total time spent is greater than 50% in coordination of care (as documented) at patient's floor/unit and/or counseling patient: Coding Level of Care Code 23219 Subseq Hosp Care Lvl 2 Diagnoses Strain of left iliopsoas muscle S76.912A Encounter type: initial encounter Left flank pain R10.9 Acute UTI N39.0 Renal mass, left N28.89 Alzheimer's dementia G30.9; F02.80 Alzheimer's disease onset: unspecified onset Dementia behavioral disturbance: without behavioral disturbance (1) Alzheimer's dementia Alzheimer's disease onset: unspecified onset Dementia behavioral disturbance: without behavioral disturbance Qualified Code(s): G30.9 - Alzheimer's disease, unspecified; F02.80 - Dementia in other diseases classified elsewhere without behavioral disturbance (2) Strain of left iliopsoas muscle Encounter type: initial encounter Qualified Code(s): S76.912A - Strain of unspecified muscles, fascia and tendons at thigh level, left thigh, initial encounter
[2020-08-29] MEDS: HEPARIN SOD 5,000 UNIT/0.5 ML VIAL SQ SCH ×2 (09:52→20:29)
[2020-08-29] MEDS: metroNIDAZOLE 500 MG TAB PO SCH ×2 (11:08→20:23)
[2020-08-29] MEDS ORDERED: hydrALAZINE HCL 20 MG/ML VIAL IV PRN (14:34)
[2020-08-30] MEDS: LACTATED RINGER'S 1,000 ML IV SCH ×2 (03:18→15:18)
[2020-08-30] MEDS: HEPARIN SOD 5,000 UNIT/0.5 ML VIAL SQ SCH ×2 (08:46→19:58)
[2020-08-30] MEDS: THIAMINE HCL 100 MG TAB PO SCH (08:46)
[2020-08-30] MEDS: metroNIDAZOLE 500 MG TAB PO SCH ×2 (08:46→19:58)
--- NOTE | 2020-08-30 13:37 | Hospitalist Progress Note ---
Date of Service August 30, 2020 Assessment & Plan (1) Strain of left iliopsoas muscle: * Strain of left iliopsoas muscle noted on CT- * Likely explanation for left sided flank pain. * Patient unlikely to be able to participate in PT or OT assessment due to severe dementia (2) Left flank pain: * As above (3) Acute UTI: Urine culture grew >100k CFU but with garderella type species -- currently on a course of Flagyl. (4) Renal mass, left: * Stable on CT. * Family aware that this is likely a renal cell carcinoma and would not want any aggressive therapy done (5) Alzheimer's dementia: * Patient is noted to have progressive dementia. * IM Haldol q3h prn for agitation - patient pulled out IVs and will avoid restarting * Family is unable to care for her at home. * She is on the waiting list for [facility]. However they are currently not accepting new residents at this time. CM on board. * Thiamine replacement has been started while inpatient. * Palliative care consult pending. (6) Hypertension: BPs have been elevated this admission. Hydralazine ordered for BP >180 systolic or >100 diastolic. Will avoid starting any new chronic medications if family prefers comfort care at this time. Will await palliative care consult for further recommendations. Disposition: SNF when bed is available. Admission and Anticipated Discharge Date Admission Date: August 29, 2020 Subjective 75 yo female with severe dementia admitted for strain of the iliopsoas muscle. Patient is a poor historian due to cognitive status. She is unable to answer my questions today. Awaiting placement at SNF as the family no longer feels that they can care for her. Patient's daughter was requesting comfort care. Palliative consult pending. Review of Systems Review of Systems: Unobtainable due to cognitive status Physical Exam Physical Exam: Temp Pulse Resp BP Pulse Ox 36.9 C 88 16 178/95 H 98 08/30/20 06:46 08/30/20 06:46 08/30/20 06:46 08/30/20 06:46 08/30/20 06:46 Constitutional: average body habitus; no acute distress ENMT: Ears: no hearing impairment Neck: normal visual inspection Respiratory: normal respiratory effort, lungs clear to auscultation Cardiovascular: RRR, no murmur, no edema Gastrointestinal (Abdomen): Inspection/Auscultation: normal bowel sounds Percussion/Palpation: abdomen soft; abdomen nontender and no hepatosplenomegaly Psychiatric: Orientation: alert; + not oriented to place Eye Contact: + fair eye contact Affect: euthymic affect Results & Data Results & Data ([facility]) Vital Signs (Past 12 Hours) Vital Signs Temp Pulse Resp BP Pulse Ox 08/30/20 06:46 36.9 C 88 16 178/95 H 98 PG Care Time/CCT Total # of Minutes Spent Total Time Spent with Patient: Total time spent is greater than 50% in coordination of care (as documented) at patient's floor/unit and/or counseling patient: Coding Level of Care Code 65728 Subseq Hosp Care Lvl 2 History Problem Focused Exam Expanded Problem Focused Medical Decision Making Moderate Complexity Diagnoses Strain of left iliopsoas muscle S76.912A Encounter type: initial encounter Left flank pain R10.9 Acute UTI N39.0 Renal mass, left N28.89 Alzheimer's dementia G30.9; F02.80 Alzheimer's disease onset: unspecified onset Dementia behavioral disturbance: without behavioral disturbance Hypertension I10 (1) Strain of left iliopsoas muscle Encounter type: initial encounter Qualified Code(s): S76.912A - Strain of unspecified muscles, fascia and tendons at thigh level, left thigh, initial encounter (2) Alzheimer's dementia Alzheimer's disease onset: unspecified onset Dementia behavioral disturbance: without behavioral disturbance Qualified Code(s): G30.9 - Alzheimer's disease, unspecified; F02.80 - Dementia in other diseases classified elsewhere without behavioral disturbance
[2020-08-31] MEDS: HALOPERIDOL LACTATE 5 MG/ML 1 ML VIAL IM PRN (02:29)
[2020-08-31] MEDS: LACTATED RINGER'S 1,000 ML IV SCH (04:14)
[2020-08-31] MEDS: THIAMINE HCL 100 MG TAB PO SCH (09:28)
[2020-08-31] MEDS: metroNIDAZOLE 500 MG TAB PO SCH ×2 (09:28→21:52)
[2020-08-31] MEDS: HEPARIN SOD 5,000 UNIT/0.5 ML VIAL SQ SCH (09:28)
--- NOTE | 2020-08-31 11:56 | Palliative Care Consultation ---
Date of Consultation August 31, 2020 Assessment & Plan (1) Palliative care encounter: The patient is a 75-year-old female who presented to the [facility] with intermittent left flank pain which was determined to be a strain of left iliopsoas muscle noted on CT. She does have a renal mass that is anticipated to be renal cell carcinoma.She has an additional PMH that includes:left renal mass, hiatal hernia, diverticulosis, hypertension, hyperlipidemia, GERD, urge and stress incontinence, & recurrent UTI. The patient is an overall poor historian, although able to communicate, can not disclose medical details due to her dementia. The family has decided to forgo aggressive measures. Palliative care was consulted to discuss overall goals of care. I met with the patient in room 375. She was sitting upright, trying to place her red sock on the foot that already had a red sock on it. She was able to tell me her name and answer yes and no to simple questions, but overtly was confused and has severe dementia. FAST score all of 6 and up to 7A. I reached out to the patients daughter in law, Elle at [phone]. We talked at length about her hospital course and the families wishes for her to not undergo further aggressive measures. While in the hospital they want to forgo any future blood draws and would like her injections discontinued, understanding risk. The patient is on the waiting list at [facility], but unfortunately, they are not accepting any patients at this time. The patient does live with her , Rashaad, who per the patients daughter, is not well himself and is not able to care for Sadaf. We discussed returning home with hospice services, expressing that 24/7 care would be necessary for her to return home. Elle mentioned being able to help in the short term, in addition to 24/7 care which may be difficult to arrange right now as well due to COVID resources. I spoke with Lilia from case management who spoke with Elle and placed a referral to [facility]. Equipment needs were discussed. For now, patient will receive comfort directed care, hospice approach. Continue medications she is able to consume. No Current symptom management needs. Palliative will follow. POLST would be helpful prior to discharge. (2) Renal cell carcinoma: (3) Alzheimer's dementia: Alzheimer's disease onset: unspecified onset Dementia behavioral disturbance: without behavioral disturbance Qualified Code(s): G30.9 - Alzheimer's disease, unspecified; F02.80 - Dementia in other diseases classified elsewhere without behavioral disturbance History of Present Illness Reason for Consultation: Goals of care Requesting Physician: Yenny Nelson PA-C Attending Physician: Edgard Bey MD History of Present Illness The patient is a 75-year-old female who presented to the [facility] with intermittent left flank pain which was determined to be a strain of left iliopsoas muscle noted on CT. She does have a renal mass that is anticipated to be renal cell carcinoma.She has an additional PMH that includes:left renal mass, hiatal hernia, diverticulosis, hypertension, hyperlipidemia, GERD, urge and stress incontinence, & recurrent UTI. The patient is an overall poor historian, although able to communicate, can not disclose medical details due to her dementia. The family has decided to forgo aggressive measures. Palliative care was consulted to discuss overall goals of care. Please see A/P for further details. Thank you kindly for involving palliative care with this patient. Allergies Allergy/AdvReac Type Severity Reaction Status Date / Time dexamethasone Allergy Unknown hives Verified 08/26/20 20:34 methylprednisolone Allergy Unknown hives Verified 08/26/20 20:34 triamcinolone Allergy Unknown hives Verified 08/26/20 20:34 Neosporin OINT Allergy Unknown Unknown Uncoded 08/26/20 20:34 Nickel Allergy Unknown Unknown Uncoded 08/26/20 20:34 Voltaren TBEC Allergy Unknown Unknown Uncoded 08/26/20 20:34 Patient History Medical History (Updated 08/31/20 @ 12:26 by MARISA Arechiga) Alzheimer's dementia Chronic constipation Diverticulosis GERD (gastroesophageal reflux disease) Hiatal hernia Hyperlipidemia Hypertension Palliative care encounter Recurrent UTI (urinary tract infection) Renal cell carcinoma Renal mass, left Urge and stress incontinence Family History (Updated 10/16/19 @ 09:21 by Miranda Montes De Oca) Denies family history of Ovarian cancer Prostate cancer Myocardial infarction Breast cancer Colorectal cancer Social History Smoking Status: Unknown if ever smoked Second Hand Exposure: No; Hx Alcohol Use: No Hx Substance Use: No Preferred Language: Cypriot Communication Ability: Impaired Rn Bariatric Required: No Beliefs That Will Affect Care: None marital status: Current Living Situation: Spouse current occupational status: retired Feels Safe at Home: Declines to Answer Assistive Devices: None Review of Systems Review of Systems: Unobtainable due to cognitive status Physical Exam Constitutional: + frail appearing, cooperative and comfortable Respiratory: normal respiratory effort Auscultation: + diminished lung sounds Cardiovascular: RRR, no murmur, no edema Extremities: normal capillary refill and + edema Gastrointestinal (Abdomen): normal bowel sounds, soft, nontender, no hepatosplenomegaly Skin: no rashes, warm and dry + pallor Psychiatric: Orientation: alert, oriented to person and cooperative Insight: + limited insight Judgement: + limited judgement Results & Data ([facility]) Vital Signs (Past 12 Hours) Vital Signs Pulse BP 08/31/20 10:53 99 H 187/91 H 08/31/20 03:12 90 122/68 PG Care Time/CCT Total # of Minutes Spent Total Time Spent with Patient: Total time spent is greater than 50% in coordination of care (as documented) at patient's floor/unit and/or counseling patient: 100 Coding Level of Care Code 90263 Inpt Consult Level 4 Diagnoses Palliative care encounter Z51.5 Renal cell carcinoma C64.9 Alzheimer's dementia G30.9; F02.80 Alzheimer's disease onset: unspecified onset Dementia behavioral disturbance: without behavioral disturbance Time Spent Midlevel Total time spent 100 minutes with > 50% of that time spent assessing the patient, discussing goals of care with patients daughter in law, and collaborating with IDT
--- NOTE | 2020-08-31 15:06 | Hospitalist Progress Note ---
Date of Service August 31, 2020 Assessment & Plan (1) Alzheimer's dementia: * progressive dementia. * Greatly appreciated palliative care discussion with family eventually moving to 24-hour care * Family is unable to care for her at home. * She is on the waiting list for [facility] . * Consult child protective services social worker. * Will place on thiamine replacement if patient agreeable to take -- of note, did take flagyl in juice/applesauce today so can take pills Family wishes to have comfort directed care does not want blood work testing subsequently we will discontinue DVT prevention as it is uncomfortable (2) Strain of left iliopsoas muscle: * CT scan abdomen pelvis 08/26/2020 IMPRESSION: 1. Mild asymmetric right lung base opacities favor atelectasis. A mild pneumonitis could appear similarly. 2. Limited exam as above. No evidence of common or emboli. 3. No bowel obstruction or bowel wall thickening. 4. Air within the nondependent bladder, likely secondary to recent instrumentation. Correlate with urinalysis. 5. Colonic diverticulosis. 6. Probable renal cell carcinoma of the left kidney measuring 2.0 cm is unchanged. 7. Subtle nonspecific stranding surrounds the iliopsoas psoas muscle. This may reflect a muscle strain without definite intramuscular hematoma identified. Conservative management of her iliopsoas strain (3) Left flank pain: * As above (4) Acute UTI: * Urine culture with less than 1000 colonies - dc'd abx * On her CT there was gas in the bladder but this could be secondary to catheterization in order to obtain urine sample. Unlikely to represent anaerobe infection as patient is afebrile, no leukocytosis on admission, and negative urine culture. Will continue to monitor for any acute changes * Urine actually with >100k CFU but with garderella type species -- will treat with flagyl if patient agreeable to take for BV (5) Renal mass, left: * Stable on CT. * Family aware that this is likely a renal cell carcinoma and would not want any aggressive therapy done Admission and Anticipated Discharge Date Admission Date: August 29, 2020 Subjective This patient is pleasantly confused she offers no focal complaints she is not interested in getting out of bed is very kind of fairly agitated picking at things repetitively reading my name badge Review of Systems Review of Systems: Unobtainable due to cognitive status Physical Exam Physical Exam: The patient appeared well obviously with significant dementia Vital signs as documented. Lungs are diminished at the bases and appear unlabored Cardiac exam, Rhythm is regular.. No murmurs, rubs or gallops. Abdominal exam reveals normal bowel sounds, soft seems uncomfortable to examination Extremities are mildly edematous and both pedal pulses are normal. Neurologic exam is alert and follows commands she is not oriented she spontaneously moves her extremities Skin is without bruises or rashes Psychologically is with concerned for progressive dementia Results & Data Results & Data ([facility]) Vital Signs (Past 12 Hours) Vital Signs Pulse BP 08/31/20 10:53 99 H 187/91 H 08/31/20 03:12 90 122/68 PG Care Time/CCT Total # of Minutes Spent Total Time Spent with Patient: Total time spent is greater than 50% in coordination of care (as documented) at patient's floor/unit and/or counseling patient: Coding Level of Care Code 28374 Subseq Hosp Care Lvl 2 Diagnoses Alzheimer's dementia G30.9; F02.80 Alzheimer's disease onset: unspecified onset Dementia behavioral disturbance: without behavioral disturbance Strain of left iliopsoas muscle S76.912A Encounter type: initial encounter Left flank pain R10.9 Acute UTI N39.0 Renal mass, left N28.89 (1) Strain of left iliopsoas muscle Encounter type: initial encounter Qualified Code(s): S76.912A - Strain of unspecified muscles, fascia and tendons at thigh level, left thigh, initial encounter (2) Alzheimer's dementia Alzheimer's disease onset: unspecified onset Dementia behavioral disturbance: without behavioral disturbance Qualified Code(s): G30.9 - Alzheimer's disease, unspecified; F02.80 - Dementia in other diseases classified elsewhere without behavioral disturbance
[2020-09-01] MEDS: THIAMINE HCL 100 MG TAB PO SCH (09:05)
[2020-09-01] MEDS: metroNIDAZOLE 500 MG TAB PO SCH ×2 (09:05→21:19)
--- NOTE | 2020-09-01 16:05 | Hospitalist Progress Note ---
Date of Service September 01, 2020 Assessment & Plan (1) Alzheimer's dementia: * progressive dementia. * Greatly appreciated palliative care discussion with family eventually moving to 24-hour care * Family is unable to care for her at home. * She is on the waiting list for [facility] . * Consult social work job titles. * Will place on thiamine replacement if patient agreeable to take -- of note, did take flagyl in juice/applesauce today so can take pills Family wishes to have comfort directed care does not want blood work testing subsequently we will discontinue DVT prevention as it is uncomfortable (2) Strain of left iliopsoas muscle: * CT scan abdomen pelvis 08/26/2020 IMPRESSION: 1. Mild asymmetric right lung base opacities favor atelectasis. A mild pneumonitis could appear similarly. 2. Limited exam as above. No evidence of common or emboli. 3. No bowel obstruction or bowel wall thickening. 4. Air within the nondependent bladder, likely secondary to recent instrumentation. Correlate with urinalysis. 5. Colonic diverticulosis. 6. Probable renal cell carcinoma of the left kidney measuring 2.0 cm is unchanged. 7. Subtle nonspecific stranding surrounds the iliopsoas psoas muscle. This may reflect a muscle strain without definite intramuscular hematoma identified. Conservative management of her iliopsoas strain (3) Left flank pain: * As above (4) Acute UTI: * Urine culture with less than 1000 colonies - dc'd abx * On her CT there was gas in the bladder but this could be secondary to catheterization in order to obtain urine sample. Unlikely to represent anaerobe infection as patient is afebrile, no leukocytosis on admission, and negative urine culture. Will continue to monitor for any acute changes * Urine actually with >100k CFU but with garderella type species -- will treat with flagyl if patient agreeable to take for BV (5) Renal mass, left: * Stable on CT. * Family aware that this is likely a renal cell carcinoma and would not want any aggressive therapy done Admission and Anticipated Discharge Date Admission Date: August 29, 2020 Subjective This patient is pleasantly confused she offers no focal complaints she is not interested in getting out of bed is very kind of fairly agitated picking at things repetitively reading my name badge Review of Systems Review of Systems: Unobtainable due to cognitive status Physical Exam Physical Exam: The patient appeared well obviously with significant dementia Vital signs as documented. Lungs are diminished at the bases and appear unlabored Cardiac exam, Rhythm is regular.. No murmurs, rubs or gallops. Abdominal exam reveals normal bowel sounds, soft seems uncomfortable to examination Extremities are mildly edematous and both pedal pulses are normal. Neurologic exam is alert and follows commands she is not oriented she spontaneously moves her extremities Skin is without bruises or rashes Psychologically is with concerned for progressive dementia Results & Data Results & Data ([facility]) Vital Signs (Past 12 Hours) Vital Signs Temp Pulse Resp BP Pulse Ox 09/01/20 09:09 97.9 F 76 18 171/71 H 99 PG Care Time/CCT Total # of Minutes Spent Total Time Spent with Patient: Total time spent is greater than 50% in coordination of care (as documented) at patient's floor/unit and/or counseling patient: Coding Level of Care Code 59031 Subseq Hosp Care Lvl 2 Diagnoses Alzheimer's dementia G30.9; F02.80 Alzheimer's disease onset: unspecified onset Dementia behavioral disturbance: without behavioral disturbance Strain of left iliopsoas muscle S76.912A Encounter type: initial encounter Left flank pain R10.9 Acute UTI N39.0 Renal mass, left N28.89 (1) Alzheimer's dementia Alzheimer's disease onset: unspecified onset Dementia behavioral disturbance: without behavioral disturbance Qualified Code(s): G30.9 - Alzheimer's disease, unspecified; F02.80 - Dementia in other diseases classified elsewhere without behavioral disturbance (2) Strain of left iliopsoas muscle Encounter type: initial encounter Qualified Code(s): S76.912A - Strain of unspecified muscles, fascia and tendons at thigh level, left thigh, initial encounter
[2020-09-02] MEDS: THIAMINE HCL 100 MG TAB PO SCH (09:11)
[2020-09-02] MEDS: metroNIDAZOLE 500 MG TAB PO SCH (09:11)
--- NOTE | 2020-09-02 19:03 | Discharge Summary ---
Date of Service September 02, 2020 Admission HPI Per Admitting Provider The patient is a 75-year-old female with a past medical history including left renal mass, hiatal hernia, diverticulosis, hypertension, hyperlipidemia, GERD, urge and stress incontinence, recurrent UTI and SDAT. The patient is not able to contribute to her HPI or review of systems due to severe dementia, and her daughter who is present in room, acts as historian. The patient has had intermittent left flank pain over the past few days, which likely is attributable a left iliopsoas strain as noted on CT scan of abdomen the pelvis in the ED. Daughter reports that family has had the patient on a waiting list t o get into [facility], and asked that we facilitate this process, as they are unable to take care of her at home due to her progressive dementia. Principal Diagnosis progressive dementia Gardnerella uti poa Discharge Exam The patient appeared fairly confused and chronically ill Vital signs as documented. Lungs are diminished Cardiac exam, Rhythm is regular.. Abdominal exam reveals normal bowel sounds, soft Neurologic exam is alert and oriented x2 Discharge Data Allergies Allergy/AdvReac Type Severity Reaction Status Date / Time dexamethasone Allergy Unknown hives Verified 08/26/20 20:34 methylprednisolone Allergy Unknown hives Verified 08/26/20 20:34 triamcinolone Allergy Unknown hives Verified 08/26/20 20:34 Neosporin OINT Allergy Unknown Unknown Uncoded 08/26/20 20:34 Nickel Allergy Unknown Unknown Uncoded 08/26/20 20:34 Voltaren TBEC Allergy Unknown Unknown Uncoded 08/26/20 20:34 Consultations 08/26/20 22:16 ED Decision to Admit Stat 08/27/20 02:26 Consult Case Management - Discharge Planning Routine 08/29/20 14:38 Consult Palliative Care Routine Ordered Studies 08/26/20 18:00 CT abd pelvis IV con only Stat 08/26/20 20:04 CT angio chest PE protocol Stat 08/28/20 12:56 US venous doppler LE RT Routine Hospital Course (1) Alzheimer's dementia: * progressive dementia. * Greatly appreciated palliative care discussion with family eventually moving to 24-hour care * Family is willing to care for her at home until she gets through to be placed at [facility] Family wishes to have comfort directed care does not want blood work testing subsequently we did discontinue DVT prevention as it is uncomfortable (2) Strain of left iliopsoas muscle: * CT scan abdomen pelvis 08/26/2020 IMPRESSION: 1. Mild asymmetric right lung base opacities favor atelectasis. A mild pneumonitis could appear similarly. 2. Limited exam as above. No evidence of common or emboli. 3. No bowel obstruction or bowel wall thickening. 4. Air within the nondependent bladder, likely secondary to recent instrumentation. Correlate with urinalysis. 5. Colonic diverticulosis. 6. Probable renal cell carcinoma of the left kidney measuring 2.0 cm is unchanged. 7. Subtle nonspecific stranding surrounds the iliopsoas psoas muscle. This may reflect a muscle strain without definite intramuscular hematoma identified. (3) Left flank pain: * As above (4) Acute UTI: * Urine culture with less than 1000 colonies - dc'd abx * On her CT there was gas in the bladder but this could be secondary to catheterization in order to obtain urine sample. Unlikely to represent anaerobe infection as patient is afebrile, no leukocytosis on admission, and negative urine culture. Will continue to monitor for any acute changes * Urine actually with >100k CFU but with garderella type species -- did treat with flagyl if patient agreeable to take for BV (5) Renal mass, left: * Stable on CT. * Family aware that this is likely a renal cell carcinoma and would not want any aggressive therapy done Total Time Total Time Spent Total Time Spent (In Minutes): less than 30 minutes required to complete Discharge Plan Discharge Items Patient Disposition: Hospice - Home Reason For Visit: ALTERED MENTAL STATUS Discharge Diagnosis: left flank pain with renal mass iliopsoas strain progressive dementia Condition on Discharge: Fair Activity: Per Instructions section Activity Comment: activity only as needed Non-emergency contact: Primary Care Provider Call non-emergency contact if: you have any medication questions and your symptoms worsen Follow-up/Referrals: Ximena Jennings MD [Primary Care Provider] - 09/03/20 11:00 am (A TELEPHONE OR TELEHEATH VISIT THIS WEEK. APPT WITH ARMAND PEACOCK) Diet: Regular Diet Texture: Easy to Chew Addtl Attending Provider Instructions: please only have pt move eat etc as she desires for comfort please follow up with outpt home nursing Pending Studies at Discharge: No Stand-Alone Forms: [facility] Ifbyphone Medications and DC Order Prescriptions: New metronidazole 500 mg Tablet 500 mg PO BID Qty: 8 RF: 0 ondansetron HCl [Zofran] 4 mg tablet 4 mg PO TID PRN (Reason: nausea and vomiting) Qty: 20 RF: 0 lorazepam [Ativan] 0.5 mg tablet 0.5 mg PO TID PRN (Reason: agitation) Qty: 20 RF: 0 Discharge Orders: Discharge Order (Routine); Ordered 09/02/20 Ordered By: Edgard Garcia/Other Patient Handouts: What Is Palliative Care? Admission Data Admit Date/Time: 08/29/20 14:12 Attending Provider: Edgard Bey Admit Provider: Ethan Bae Primary Care Provider: Ximena Jennings Other Providers: Beka Gotti ; MeredosiaTeodoro ; Elle Espinosa ; [facility] Other Interventions: Discharge Summary Assessment (RN) Last Done: 09/02/20 13:11 Coding Level of Care Code D/C Day Management <30 mins Diagnoses Alzheimer's dementia G30.9; F02.80 Alzheimer's disease onset: unspecified onset Dementia behavioral disturbance: without behavioral disturbance Strain of left iliopsoas muscle S76.912A Encounter type: initial encounter Left flank pain R10.9 Acute UTI N39.0 Renal mass, left N28.89
== END 2020-09-02 13:00 | disposition hospice, home (50) ==
LOC: ED 17:50 → 3W 17:50 → SUATTDRO 23:42 → 3W 08-27 00:52 → 3N 08-28 18:39